=== PATIENT | male | born 1985 | race Caucasian/White ===

== ENCOUNTER 2024-12-11 10:26 | Inpatient (IN) | payer BC, SELFPAY ==
--- OUTSIDE RECORDS SUMMARY | 2017-09-28 06:06 | XMS_ITS | Continuity of Care Document ---
Author Organization [facility] Address [address] [place] [phone] Care Team Providers Care Supervisor Jewelry Department Name Role Phone Nestor Alcaraz Unavailable Unavailable Advance Directives Directive Yes / No Effective Date File Name No Information Encounters Encounter Description Practice Location Reason(s) For Visit Diagnoses Date Provider Providers Copied on Encounter [facility] , [address] [place] [address], [id number], [facility] No Information 2-201 8 Kieran Baez. . Family History Family Member Type Diagnosis Age At Onset No Information Payers Payer name Insurance type Covered alliance party ID Authoriza tion(s) No Information Social History Type Description Quantity Date Captured Comments Sex Male Smoking Status No Information Chief Complaint And Reason For Visit No Information Reason For Referral Reason For Referral No Information History Of Present Illness Encounter Date Complaint History Of Prese nt Illness No Information Functional Status Date Functional Assessmen t No Information Instructions Date Instruction Additional Infor mation No Information Assessments Type Assessment Date No Information Patient Care Teams Name Effective Dates (start - stop) Status Members No Information
--- OUTSIDE RECORDS SUMMARY | 2017-09-28 06:06 | XMS_ITS | Continuity of Care Document ---
Author Organization [facility] Address [address] [place] [address] Care Team Providers Care Cattle Killer Name Role Phone Nestor Alcaraz Unavailable Unavailable Advance Directives Directive Yes / No Effective Date File Name No Information Encounters Encounter Description Practice Location Reason(s) For Visit Diagnoses Date Provider Providers Copied on Encounter [facility] , [address] [place] [address], [id number], [facility] No Information 2-201 8 Kieran Baez. . Family History Family Member Type Diagnosis Age At Onset No Information Payers Payer name Insurance type Covered republican ID Authoriza tion(s) No Information Social History [...]
--- OUTSIDE RECORDS SUMMARY | 2024-12-10 08:15 | XMS_ITS | Encounter Summary ---
Author Organization [facility] Address [address], [place] [address] Care Team Providers Care Dna Analyst Name Role Phone Found, No Pcp MD Primary Care Provider Unavailab le Reason for Visit * Procedure/Equipment (Routine) - Incomplete Specialty Diagnoses / Procedures Referred By Maria Esther t Referred To Contact Diagnoses Flank pain Procedures XR Abd Flat/KUB 1 View Navin Atwood, CORRESPONDENCE REVIEW CLERK, OXYGEN THERAPY TEACHER [address] [place] [address] Phone: tel: fax: Referral ID Status Reason Start Date Expiration Date V isits Requested Visits Authorized [id number] Incomplete 12/10/2024 03/11/2026 1 1 Encounter Details Date Type Department Care Team (Late st Contact Info) Description 12/10/2024 8:15 AM CDT Ancillary Procedure [facility] [address] [place] [phone] Navin Atwood, CORRESPONDENCE REVIEW CLERK, OXYGEN THERAPY TEACHER [address] [place] [address] Flank pain Social History Tobacco Use Types Packs/Day Years Used Date Smoking Tobacco: Every Day Cigarettes Smokeless Tobacco: Never Sex and Gender Information Value Date Recorded Sex Assigned at Not on file Legal Sex Male 3:47 AM CDT Gender Identity Not on file Sexual Orientation Not on file documented as of this encounter Plan of Treatment Not on file documented as of this encounter Procedures Procedure Name Priority Date/Time Associated Diagnosis Comments XR ABD FLAT/KUB 1 VIEW STAT 12/10/2024 8:18 AM CDT Flank pain documented in this encounter Results * XR Abd Flat/KUB 1 View (12/10/2024 8:18 AM CDT) Anatomical Region Laterality Modality Abdomen Digital Radiogra phy Narrative 12/10/2024 8:36 AM CDT EXAM: XR ABD FLAT/KUB 1 VIEW INDICATION: ? right stone COMPARISON: None. FINDINGS: No definite dense urinary stone though overlying bowel gas and stool could obscure small stones. The bowel gas pattern is nonobstructive. Signed by: Santy Ramos 12/10/2024 8:36 AM Procedure Note Santy Ramos MD - 12/10/2024 EXAM: XR ABD FLAT/KUB 1 VIEW INDICATION: ? right stone COMPARISON: None. FINDINGS: No definite dense urinary stone though overlying bowel gas and stool couldobscure small stones. The bowel gas pattern is nonobstructive. Signed by: Santy Ramos 12/10/2024 8:36 AM Navin Atwood CORRESPONDENCE REVIEW CLERK, OXYGEN THERAPY TEACHER RAD GD Final Re sult documented in this encounter Visit Diagnoses Diagnosis Flank pain Abdominal pain, unspecified site documented in this encounter Care Teams Dna Analyst Relationship Specialty Start Date End Date Found, No Pcp, [address] [place] [address] PCP - General 10/18/21 documented as of this encounter
--- OUTSIDE RECORDS SUMMARY | 2024-12-10 08:20 | XMS_ITS | Encounter Summary ---
Author Organization [employer] Address [address], [place] [address] Care Team Providers Care Foreign Correspondent Name Role Phone Found, No Pcp MD Primary Care Provider Unavailab le Reason for Referral * Procedure/Equipment (Routine) - Incomplete Specialty Diagnoses / Procedures Referred By Maria Esther brewer Referred To Contact Diagnoses Flank pain Procedures XR Abd Flat/KUB 1 View Navin Talamantes, TENA, EARLY INTERVENTIONIST [address] [place] [address] Phone: tel: fax: Referral ID Status Reason Start Date Expiration Date V isits Requested Visits Authorized [id number] Incomplete 12/10/2024 03/11/2026 1 1 Reason for Visit * Reason Comments ABDOMINAL PAIN--RLQ--ED RLQ abdominal pa in began yesterday morning, pain can be 8/10 sharp pain, vomiting began yesterday morning Loose stools Feverish and chilled Encounter Details Date Type Department Care Team (Late st Contact Info) Description 12/10/2024 8:20 AM CDT Office Visit [id number] [address] [place] [address] Navin Talamantes, TENA, EARLY INTERVENTIONIST [address] [place] [address] Flank pain Social History Tobacco Use Types Packs/Day Years Used Date Smoking Tobacco: Every Day Cigarettes Smokeless Tobacco: Never Sex and Gender Information Value Date Recorded Sex Assigned at Not on file Legal Sex Male 3:47 AM CDT Gender Identity Not on file Sexual Orientation Not on file documented as of this encounter Last Filed Vital Signs Vital Sign Reading Time Taken Comments Blood Pressure 157/89 12/10/2024 8:02 AM CDT Pulse 109 12/10/2024 8:02 AM CDT Temperature 36.8 C (98.3 F) 12/10/2024 8:02 AM CDT Respiratory Rate 18 12/10/2024 8:02 AM CDT Oxygen Saturation 99% 12/10/2024 8:02 AM CDT Inhaled Oxygen Concentration - - Weight - - Height - - Body Mass Index - - documented in this encounter Patient Instructions * Patient Instructions* Navin Talamantes APRN, CNP - 12/10/2024 8:20 AM CDT Take ibuprofen 600 mg every 6 hours. Take Dramamine 50 mg up to 3 times a day. Use antinausea medication as needed as directed. Use pain medication as needed as directed. Strain your urine. Follow-upwith primary care/Urology if you develop increasing pain or other concerns. Return to the emergencydepartment if you develop uncontrolled pain, vomiting, fevers, or other concerns. * Attachments The following attachments cannot be sent through Care Everywhere. * Kidney Stone (Khmer) documented in this encounter Progress Notes * Navin Talamantes APRN, CNP - 12/10/2024 8:20 AM CDTAddended by: NAVIN TALAMANTES on: 12/10/2024 01:58 PM Modules accepted: Orders * Maia Durán RN - 12/10/2024 8:20 AM CDTAddended by: MAIA DURÁN on: 12/10/2024 03:55 PM Modules accepted: Orders * Navin Talamantes APRN, CNP - 12/10/2024 8:20 AM CDT Patient ID Marty Goodwin 1985 SUBJECTIVE: 39 y.o. male presents with gradually increasing right-sided flank pain since yesterday. Pain causeshim to be unable to find an uncomfortable position. Will occasionally radiate to his groin. Denies any urinary symptoms. Had some vomiting last night. No difficulty breathing or shortness of breath. No other concerns or complaints. Past medical and surgical history reviewed on EMR. Medications reviewed on EMR No Known Allergies ROS: As noted in HPI, all other systems are negative OBJECTIVE: Patient Vitals for the past 24 hrs: BP Temp Temp src Pulse Resp SpO2 12/10/24 0802 (!) 157/89 36.8 ??C (98.3 ??F) Oral (!) 109 18 99 % General: Alert, Mild discomfort, well kept Eyes: No scleral icterus or conjunctival injection ENT: Moist mucus membranes, Normal voice Resp: No cough, normal work of breathing,. Good air movement CV: Normal rate GI: Abdomen soft and non-distended. Normoactive BS. Right mild CVA tenderness that radiates towardsthe groin. No significant right lower quadrant tenderness. No rebound tenderness Skin: Warm, dry. No rashes or petechiae Musculoskeletal: Normal gross ROM Neuro: Alert and oriented to person/place/time, normal sensation Psychiatric: Normal affect, cooperative, good eye contact LABS: Results for orders placed or performed in visit on 12/10/24 UA with Microscopic: Clean Catch Specimen: Clean Catch; Urine Result Value Ref Range Color Yellow Clarity Clear Clear Specific [place] 1.010 1.005 - 1.030 pH 6.5 5.0 - 8.0 Protein Negative Neg/Trace mg/dL Glucose Negative Negative mg/dL Ketones Negative Negative mg/dL Urobilinogen 1.0 <2.0 EU/dL Bilirubin Negative Negative Blood Small (A) Neg/Trace Nitrite Negative Negative Leukocyte Esterase Trace (A) Negative Source Clean Catch Urine Microscopic Evaluation: Clean Catch Specimen: Clean Catch; Urine Result Value Ref Range Red Blood Cells 8-10 (A) 0 - 3 /HPF White Blood Cells 0-5 0 - 5 /HPF Mucus Present (A) None Seen /HPF IMAGING: XR Abd Flat/KUB 1 View Result Date: 12/10/2024 EXAM: XR ABD FLAT/KUB 1 VIEW INDICATION: ? right stone COMPARISON: None. FINDINGS: No definite dense urinary stone though overlying bowel gas and stool could obscure small stones. The bowel gas pattern is nonobstructive. Signed by: Santy Ramos 12/10/2024 8:36 AM Images ordered and were independently reviewed. No obvious stone. Agree with radiologic over-read.. Medications: Outpatient Encounter Medications as of 12/10/2024 Medication Sig Dispense Refill HYDROcodone-acetaminophen (NORCO) 5-325 MG tablet Take 1 Tablet by mouth every 6 hours as needed for Pain. 10 Tablet 0 ondansetron (ZOFRAN-ODT) 4 MG disintegrating tablet Take 1 Tablet (4 mg) by mouth every 8 hours as needed for Nausea. 8 Tablet 0 Facility-Administered Encounter Medications as of 12/10/2024 Medication Dose Route Frequency Provider Last Rate Last Admin [COMPLETED] ketorolac (TORADOL) injection 15 mg 15 mg Intramuscular Once Navin Talamantes APRN, CNP 15 mg at 12/10/24 0814 ASSESSMENT: 39 y.o. male presented with concerns as noted above. His examination was most concerning for kidneystone. We did obtain a KUB however a stone was not visualized. He does have some blood in his urinewithout signs of infection given his history and presentation this is a presumptive kidney stone. Can not fully rule out appendicitis however his exam is less consistent with that. We discussed options about further evaluation and he would like to treat it as a kidney stone at this time concerning signs and symptoms as well as reasons to present to the emergency department were discussed. At thispoint he does appear to be safe and appropriate for outpatient management follow-up and is discharged home. Diagnosis and Associated Orders ICD-10-CM 1. Flank pain R10.9 ketorolac (TORADOL) injection 15 mg XR Abd Flat/KUB 1 View UA with Microscopic: Clean Catch Urine Microscopic Evaluation: Clean Catch PLAN: Follow up with primary care physician in 3 - 5 days or sooner if symptoms worsen , may return here or go to the ER if worsening or concerns. documented in this encounter Nursing Notes * Belkys Jackson RN - 12/10/2024 8:20 AM CDT Marty Goodwin is a 39 y.o.male presents to the Urgent Care for ABDOMINAL PAIN--RLQ--ED (RLQ abdominal pain began yesterday morning, pain can be 8/10 sharp pain, vomiting began yesterday morning //Loose stools /Feverish and chilled ) Getting worse documented in this encounter Plan of Treatment Not on file documented as of this encounter Procedures Procedure Name Priority Date/Time Associated Diagnosis Comments UA WITH MICROSCOPIC STAT 12/10/2024 8 :21 AM CDT Flank pain UA MICRO STAT 12/10/2024 8:21 AM CDT Flank pain documented in this encounter Results * (ABNORMAL) Urine Microscopic Evaluation: Clean Catch (12/10/2024 8:21 AM CDT) Red Blood Cells 8-10(A) 0 - 3 /HPF 12/10/2024 9:11 AM CDT [facility] White Blood Cells 0-5 0 - 5 /HPF 12/10/2024 9:11 AM T [facility] Mucus Present(A) None Seen /HPF 12/10/2024 9:11 AM T [facility] Urine URINE SPECIMEN COLLECTION, CLEAN CATCH / Unknown Non-blood Collection / Unknown 12/10/2024 8:21 AM CDT 12/10/2024 9:00 AM CDT us Navin Talamantes GEAR REPAIRER, EARLY INTERVENTIONIST LAB_1 Final Re sult [facility] CLIA: [id number] [place] [address], [facility] * (ABNORMAL) UA with Microscopic: Clean Catch (12/10/2024 8:21 AM CDT) Color Yellow 12/10/2024 9:11 AM CDT [facility] Clarity Clear Clear 12/10/2024 9:11 AM [facility] Specific [place] 1.010 1.005 - 1.030 12/10/2024 9:11 AM [facility] pH 6.5 5.0 - 8.0 12/10/2024 9:11 AM [facility] Protein Negative Neg/Trace mg/dL 12/10/2024 9:11 AM [facility] Glucose Negative Negative mg/dL 12/10/2024 9:11 AM [facility] Ketones Negative Negative mg/dL 12/10/2024 9:11 AM [facility] Urobilinogen 1.0 <2.0 EU/dL 12/10/2024 9:11 AM [facility] Bilirubin Negative Negative 12/10/2024 9:11 AM [facility] Blood Small(A) Neg/Trace 12/10/2024 9:11 AM [facility] Nitrite Negative Negative 12/10/2024 9:11 AM [facility] Leukocyte Esterase Trace(A) Negative 12/10/2024 9:11 AM [facility] Source Clean Catch 12/10/2024 9:11 AM [facility] Urine URINE SPECIMEN COLLECTION, CLEAN CATCH / Unknown Non-blood Collection / Unknown 12/10/2024 8:21 AM CDT 12/10/2024 9:00 AM CDT us Navin Talamantes APRN, EARLY INTERVENTIONIST LAB_1 Final Re sult [facility] CLIA: [id number] [address] [place] [address], [facility] * XR Abd Flat/KUB 1 View (12/10/2024 [...] Signed by: Santy Ramos 12/10/2024 8:36 AM us Navin Talamantes GEAR REPAIRER, EARLY INTERVENTIONIST RAD GD Final Re sult documented in this encounter Visit Diagnoses Diagnosis Flank pain Abdominal pain, unspecified site Flank pain Abdominal pain, unspecified site documented in this encounter Administered Medications Inactive Administered Medications - up to 3 most recent administrations Medication Order MAR Action Action Date Dose Rate Site ketorolac (TORADOL) injection 15 mg 15 mg, Intramuscular, ONCE, On 12/10/24 at 0830, For 1 doseIndications:Flank pain Given 12/10/2024 8:14 AM CDT 15 mg Right Ventralgluteal documented in this encounter Care Teams Foreign Correspondent Relationship Specialty Start Date End Date Found, No Pcp, [address] [place] [address] PCP - General 10/18/21 documented as of this encounter
[2024-12-11] VITALS (28 sets, daily range): BP systolic 112–171; BP diastolic 58–104; PULSE 80–113; RESP 14–20; TEMP 36.1–38.3; O2SAT 92–98; BMI 26.6
--- OUTSIDE RECORDS SUMMARY | 2024-12-11 10:28 | XMS_ITS | Clinical Summary ---
Author Organization [facility] Address [address] [place] [address] Care Team Providers Care Emissions Testing And Repair Technician Name Role Phone Errol Nevarez MD Primary Care Provider [phone] Allergies No known active allergies Medications erythromycin ophthalmic ointment 0.5%Indications: Corneal abrasion, unspecified laterality, initial encounter Apply a thin ribbon to the top edge of the lower right eyelid every 4 hours while awake for 5 days 3.5 g 05/24/2023 Active gabapentin (NEURONTIN) 300 mg capsuleIndicatio ns:Corneal abrasion, unspecified laterality, initial encounter Take 1 Capsule (300 mg) by mouth three times daily. For eye nerve pain 10 Capsule 05/24/2023 Active Propylene Glycol-Glycerin (Artificial Tears,Glycerin-P EG,) 1-0.3 % ophthalmic solutionIndicati ons:Corneal abrasion, unspecified laterality, initial encounter Instill 1-2 drops every 2 hours as needed for eye dryness 15 mL 05/24/2023 Active Active Problems Problem Noted Date Diagnosed Date Chemical dependency 06/07/2016 Tobacco use disorder 09/19/2008 Recurrent acute otitis media 09/19/2008 Overview (09/19/2008): ~ 08/03/07 ~ 09/19/08 Seizure Overview (02/20/2010): 5-6 total, first seizure when 19-20 years old. followed By Dr. Mir. Started Keppra August 2009. Follow up Neurology visit Oct 2009. Immunizations Immunization Administration Dates Next Due DTaP 08/21/1988 Hepatitis B (Peds) 08/30/2002,11/24/2000 Tdap 01/31/2010 Family History Medical History Relation Name Comments Good Health Father Heart Disease Father Good Health Mother Relation Name Status Comments Father Mother Social History Tobacco Use Types Packs/Day Years Used Date Smoking Tobacco: Every Day Cigarettes 1 5 Smokeless Tobacco: Never Tobacco Cessation:Ready to Q uit: No; Counseling Given: Yes Alcohol Use Standard Drinks/Week Comments No 0 (1 standard drink = 0.6 oz pur e alcohol) Social Connections Answer Date Recorded Frequency of Communication with Friends and Fami ly Not on file 08/12/2021 Sex and Gender Information Value Date Recorded Sex Assigned at Not on file Legal Sex Male 7:28 AM FOLDER SEAMER AUTOMATIC Gender Identity Not on file Sexual Orientation Not on file Obstetrics History Last Filed Vital Signs Vital Sign [place] Time Taken Comments Blood Pressure 141/74 05/24/2023 5:14 PM FOLDER SEAMER AUTOMATIC Pulse 76 05/24/2023 5:14 PM FOLDER SEAMER AUTOMATIC Temperature 36.5 C (97.7 F) 05/24/2023 5:14 PM FOLDER SEAMER AUTOMATIC Respiratory Rate 16 05/24/2023 5:14 PM FOLDER SEAMER AUTOMATIC Oxygen Saturation 98% 05/24/2023 5:14 PM FOLDER SEAMER AUTOMATIC Inhaled Oxygen Concentration - - Weight 86.2 kg (190 lb) 05/24/2023 5:14 PM FOLDER SEAMER AUTOMATIC Height 177.8 cm (5' 10) 05/24/2023 5:14 PM FOLDER SEAMER AUTOMATIC Body Mass Index 27.26 05/24/2023 5:14 PM FOLDER SEAMER AUTOMATIC Plan of Treatment Health Maintenance Due Date Last Done Comments Depression screening for age 12+ 1999 Hepatitis B series for 19+ ( 3 of 3 - 3-dose series) 10/25/2002 08/30/2002, 11/24/2000 HIV for age 15-65 12/04/2002 Hepatitis C screening for age 18-79 12/04/2005 Pneumococcal series for age 6-49 (1 of 2 - PCV) 12/04/2006 HPV series for age 9-45 (1 - 3-dose SCDM series) 12/04/2014 Tetanus booster 02/01/2020 01/31/2010 Lipids for age 35-44 12/04/2022 06/06/2016 BMI (ht and wt on same day) for age 18+ 05/24/2024 05/24/2023, 08/02/2021, 06/06/2016 COVID-19 vaccine series ( season) 2024 02/22/2021, 01/31/2021 Influenza Vaccine (#1) 2024 RSV vaccine for adults or pr egnancy (1 - 1-dose 75+ series) 12/04/2062 Procedures Procedure Name Priority Date/Time Associated Diagnosis Comments LIPID PANEL Routine 06/06/2016 11:20 AM FOLDER SEAMER AUTOMATIC Physical exam from Last 3 Months or Most Recently Relevant to Health Maintenance Results * (ABNORMAL) LIPID PANEL (06/06/2016 11:20 AM FOLDER SEAMER AUTOMATIC) CHOLESTEROL,TOTAL 235(H) 100 - 199 mg/dL 06/06/2016 9:51 PM FOLDER SEAMER AUTOMATIC [facility] TRIGLYCERIDES 89 <150 mg/dL 06/06/2016 9:51 PM FOLDER SEAMER AUTOMATIC [facility] HDL CHOLESTEROL 49 >40 mg/dL 7 9:51 PM FOLDER SEAMER AUTOMATIC [facility] NON-HDL CHOLESTEROL 186(H) <145 mg/dl 06/06/2016 9:51 PM FOLDER SEAMER AUTOMATIC [facility] CHOL/HDL RATIO 4.80(H) <4.50 06/06/2016 9:51 PM FOLDER SEAMER AUTOMATIC [facility] LDL CHOLESTEROL 168(H) <=130 mg/dL 06/06/2016 9:51 PM FOLDER SEAMER AUTOMATIC [facility] PATIENT STATUS NOT GIVEN 06/06/2016 9:51 PM FOLDER SEAMER AUTOMATIC [facility] Blood BLOOD SPECIMEN / Unknown Venipuncture / Unknown 06/06/2016 11:20 AM FOLDER SEAMER AUTOMATIC 06/06/2016 11:20 AM FOLDER SEAMER AUTOMATIC us Mp Castillo MD CHEMISTRY Final Resu lt [facility] [address] [place] [address], [place] from Last 3 Months or Most Recently Relevant to Health Maintenance Insurance [employer] Member Subscriber Plan / Payer (Ef fective 2021-Present) Name:Marty Goodwin Relation to Subscriber:Employee Name:[address] [place] [address] Date of :1998 (Home) Address: [address] [address] Payer ID:Not on file Group ID:Not on file Type:Not on file Address: [employer] [address] [facility] [phone] [place] [phone] * Guarantor: [employer] Account Type Relation to Patient Date of Phone Billing Address [employer] [address] [place] [address] Care Teams Emissions Testing And Repair Technician Relationship Specialty Start Date End Date Errol Nevarez MD PCP - General 09/19/08
--- OUTSIDE RECORDS SUMMARY | 2024-12-11 10:28 | XMS_ITS | Clinical Summary ---
Author Organization [facility] Address [address], [place] [address] Care Team Providers Care Linux Network Engineer Name Role Phone Found, No Pcp MD Primary Care Provider Unavailab le Source Comments You are receiving this document as you are listed as the primary care provider,follow-up provider, or the patient has been referred to you for consultation.This is in compliance with the Medicare and[facility] EHR Incentive Program,which states Providers who transition their patient to another setting of careor provider of care or refers their patient to another provider of care shouldprovide summary care record for each transition of care or referral. FPSI Allergies No known active allergies Medications HYDROcodone-acetam inophen (NORCO) 5-325 MG tablet Take 1 Tablet by mouth every 6 hours as needed for Pain. 10 Tablet 12/11/19 25 Active ondansetron (ZOFRAN-ODT) 4 MG disintegrating tablet Take 1 Tablet (4 mg) by mouth every 8 hours as needed for Nausea. 8 Tablet 12/11/19 25 Active ondansetron (ZOFRAN-ODT) 4 MG disintegrating tablet Take 1 Tablet (4 mg) by mouth every 8 hours as needed for Nausea. 8 Tablet 12/11/19 25 025 Discontinued HYDROcodone-acetam inophen (NORCO) 5-325 MG tablet Take 1 Tablet by mouth every 6 hours as needed for Pain. 10 Tablet 12/11/19 25 025 Discontinued Hospital, Clinic, or Other Facility Administered Medication Ordered Dose Route Frequency Start Date End Date Status ketorolac (TORADOL) injection 15 mgIndications:Flank pain 15 mg IM ONCE 12/10/2024 12/10/2024 Ended Active Problems Problem Noted Date Diagnosed Date Seizure 12/10/2024 Overview (12/10/2024): 5-6 total, first seizure when 19-20 years old. followed By Dr. Mir. Started [facility] August 2009. Follow up Neurology visit Oct 2009. Chemical dependency 06/07/2016 Encounters Date Type Department Care Team Description 12/10/2024 8:20 AM CDT Office Visit [place] [address] [facility] [id number] [place] [phone] Navin Atwood, FLIGHT CREW TIME CLERK, LABOR COMMISSIONER Flank pain 12/10/2024 8:15 AM CDT Ancillary Procedure [facility] [id number] [place] [phone] Navin Atwood, FLIGHT CREW TIME CLERK, LABOR COMMISSIONER Flank pain 12/10/2024 Telephone [place] [address] [facility] [id number] [place] [phone] Needs Pcp, Assignment Medication Questions from Last 3 Months Immunizations Immunization Administration Dates Next Due DTP 08/21/1988 Social History Tobacco Use Types Packs/Day Years Used Date Smoking Tobacco: Every Day Cigarettes Smokeless Tobacco: Never Tobacco Cessation:Ready to Q uit: Not Asked; Counseling Given: Not Answered Sex and Gender Information Value Date Recorded Sex Assigned at Not on file Legal Sex Male 3:47 AM CDT Gender Identity Not on file Sexual Orientation Not on file Last Filed Vital Signs Vital Sign Reading Time Taken Comments Blood Pressure 157/89 12/10/2024 8:02 AM CDT Pulse 109 12/10/2024 8:02 AM CDT Temperature 36.8 C (98.3 F) 12/10/2024 8:02 AM CDT Respiratory Rate 18 12/10/2024 8:02 AM CDT Oxygen Saturation 99% 12/10/2024 8:02 AM CDT Inhaled Oxygen Concentration - - Weight - - Height - - Body Mass Index - - Plan of Treatment Health Maintenance Due Date Last Done Comments Hep C Screening (Preventive Services) 1987 HIV Screening (Preventive Services) 2003 Adult Preventive Visit 12/04/2005 HepB Vaccine (1) 12/04/2006 Pneumococcal Vaccine (1 of 2 - PCV) 12/04/2006 HPV Vaccine (1 - 3-dose SCDM series) 12/04/2014 DTaP/Tdap/Td Vaccine (3 - Tdap) 02/01/2020 01/31/2010, 08/21/1988 Cholesterol 12/04/2022 COVID-19 Vaccine (3 - 2024-2 6 season) 2024 02/22/2021, 01/31/2021 Influenza Vaccine (#1) 2024 Zoster/Shingles Vaccine (1 o f 2) 12/04/2037 HepA Vaccine Aged Out No longer eligi ble based on patient's age to complete this topic Hib Vaccine Aged Out No longer eligi ble based on patient's age to complete this topic IPV (Polio) Vaccine Aged Out No longe r eligible based on patient's age to complete this topic MCV4 Vaccine Aged Out No longer eligi ble based on patient's age to complete this topic Meningococcal B Vaccine Aged Out No l onger eligible based on patient's age to complete this topic Procedures Procedure Name Priority Date/Time Associated Diagnosis Comments UA MICRO STAT 12/10/2024 8:21 AM CDT Flank pain UA WITH MICROSCOPIC STAT 12/10/2024 8 :21 AM CDT Flank pain XR ABD FLAT/KUB 1 VIEW STAT 12/10/2024 8:18 AM CDT Flank pain from Last 3 Months Results * (ABNORMAL) UA with Microscopic: Clean Catch (12/10/2024 8:21 AM CDT) Color Yellow 12/10/2024 9:11 AM [facility] Clarity Clear Clear 12/10/2024 9:11 AM [facility] Specific [place] 1.010 1.005 - 1.030 12/10/2024 9:11 AM [facility] pH 6.5 5.0 - 8.0 12/10/2024 9:11 AM [facility] Protein Negative Neg/Trace mg/dL 12/10/2024 9:11 AM [facility] Glucose Negative Negative mg/dL 12/10/2024 9:11 AM [facility] Ketones Negative Negative mg/dL 12/10/2024 9:11 AM [facility] Urobilinogen 1.0 <2.0 EU/dL 12/10/2024 9:11 AM [facility] Bilirubin Negative Negative 12/10/2024 9:11 AM [facility] Blood Small(A) Neg/Trace 12/10/2024 9:11 AM [facility] Nitrite Negative Negative 12/10/2024 9:11 AM [facility] Leukocyte Esterase Trace(A) Negative 12/10/2024 9:11 AM [facility] Source Clean Catch 12/10/2024 9:11 AM [facility] Urine URINE SPECIMEN COLLECTION, CLEAN CATCH / Unknown Non-blood Collection / Unknown 12/10/2024 8:21 AM CDT 12/10/2024 9:00 AM CDT Navin Atwood APRN, LABOR COMMISSIONER LAB_1 Final Re sult Performing Organization Address [facility] de Phone Number [facility] CLIA: [id number] [place] [address] * (ABNORMAL) Urine Microscopic Evaluation: Clean Catch (12/10/2024 8:21 AM CDT) Red Blood Cells 8-10(A) 0 - 3 /HPF 12/10/2024 9:11 AM [facility] White Blood Cells 0-5 0 - 5 /HPF 12/10/2024 9:11 AM [facility] Mucus Present(A) None Seen /HPF 12/10/2024 9:11 AM [facility] Urine URINE SPECIMEN COLLECTION, CLEAN CATCH / Unknown Non-blood Collection / Unknown 12/10/2024 8:21 AM CDT 12/10/2024 9:00 AM CDT Navin Atwood FLIGHT CREW TIME CLERK, LABOR COMMISSIONER LAB_1 Final Re sult Performing Organization Address [facility] de Phone Number [facility] CLIA: [id number] [place] [address] * XR Abd Flat/KUB 1 View [...] Santy Ramos 12/10/2024 8:36 AM Navin Atwood FLIGHT CREW TIME CLERK, LABOR COMMISSIONER RAD GD Final Re sult from Last 3 Months Insurance [facility] [employer] [facility] [employer] [facility] [employer] Care Teams Linux Network Engineer Relationship Specialty Start Date End Date Found, No Pcp, [address] [place] [address] PCP - General 10/18/21
--- OUTSIDE RECORDS SUMMARY | 2024-12-11 10:28 | XMS_ITS | Encounter Summary ---
Author Organization [facility] Address [address], [place] [address] Care Team Providers Care Vacuum Drier Tender Name Role Phone Found, No Pcp MD Primary Care Provider Unavailab le Reason for Visit * Reason Comments Medication Questions Encounter Details Date Type Department Care Team (Late st Contact Info) Description 12/10/2024 Telephone [place] [address] [facility] [address] [place] [phone] Needs Pcp, [place], [place] [address] Medication Questions Social History Tobacco Use Types Packs/Day Years Used Date Smoking Tobacco: Every Day Cigarettes Smokeless Tobacco: Never Sex and Gender Information Value Date Recorded Sex Assigned at Not on file Legal Sex Male 3:47 AM CDT Gender Identity Not on file Sexual Orientation Not on file documented as of this encounter Nursing Notes * Nikki Durán RN - 12/10/2024 3:55 PM CDT [facility] sent to [facility]. * Rocío Cintron - 12/10/2024 3:37 PM CDT Caller states that pharmacy received only the narcotic. Has not received the anti nausea med. Please advise * Rocío Cintron - 12/10/2024 10:47 AM CDT Medication - Transfer to new pharmacy Which medication(s) would you like transferred? ondansetron (ZOFRAN-ODT) 4 MG disintegrating table,HYDROcodone-acetaminophen (NORCO) 5-325 MG tablet Which pharmacy would you like the medication(s) transferred to? [facility]- updated documented in this encounter Plan of Treatment Not on file documented as of this encounter Visit Diagnoses Not on filedocumented in this encounter Care Teams Vacuum Drier Tender Relationship Specialty Start Date End Date Found, No Pcp, [address] [place] [address] PCP - General 10/18/21 documented as of this encounter
--- OUTSIDE RECORDS SUMMARY | 2024-12-11 10:28 | XMS_ITS | Clinical Summary ---
Author Organization [facility] Address [address] [facility] [place] [address] Care Team Providers Care Supervisor Aircraft Cleaning Name Role Phone No Ref-Primary, Physician Primary Care Provider Allergies Active Allergy Reactions Criticality Noted Date Comments No Known Drug Allergy 05/24/2007 Medications NO ACTIVE MEDICATIONS . 0 0 05/24/2007 Active meclizine (ANTIVERT) 25 MG tablet Take 1 tablet (25 mg) by mouth 3 times daily as needed for dizziness. 30 tablet 02/11/2024 Active Active Problems Problem Noted Date Diagnosed Date Tobacco use disorder 06/09/2007 Resolved Problems Problem Noted Date Diagnosed Date Resolved Date Pain in joint, shoulder region 07/15/2012 08/09/2012 Family History Medical History Relation Comments Hypertension Father Neurologic Disorder Paternal Grandfather Kory on Relation Status Comments Father Alive Maternal Grandfather Alive Maternal Grandmother Alive Mother Alive Paternal Grandfather Paternal Grandmother Alive Social History Tobacco Use Types Packs/Day Years Used Date Smoking Tobacco: Every Day Cigarettes Comments:trying to quit-2 pe r day Alcohol Use Standard Drinks/Week Comments Yes 0 (1 standard drink = 0.6 oz pur e alcohol) rare Sex and Gender Information Value Date Recorded Sex Assigned at Not on file Legal Sex Male 3:16 AM LEAK GANG SUPERVISOR Gender Identity Not on file Sexual Orientation Not on file Last Filed Vital Signs Vital Sign Reading Time Taken Comments Blood Pressure 116/73 02/11/2024 12:25 PM LEAK GANG SUPERVISOR Pulse 74 02/11/2024 12:25 PM LEAK GANG SUPERVISOR Temperature 37.1 C (98.7 F) 02/11/2024 10:08 AM LEAK GANG SUPERVISOR Respiratory Rate 18 02/11/2024 10:08 AM LEAK GANG SUPERVISOR Oxygen Saturation 97% 02/11/2024 12:25 PM LEAK GANG SUPERVISOR Inhaled Oxygen Concentration - - Weight 84.2 kg (185 lb 10 oz) 02/11/2024 10:08 A M LEAK GANG SUPERVISOR Height 175.3 cm (5' 9) 02/11/2024 10:08 AM LEAK GANG SUPERVISOR Body Mass Index 27.41 02/11/2024 10:08 AM LEAK GANG SUPERVISOR Plan of Treatment Health Maintenance Due Date Last Done Comments ADVANCE CARE PLANNING 1987 ANNUAL REVIEW OF HM ORDERS 1987 YEARLY PREVENTIVE VISIT 12/04/1990 HEPATITIS B VACCINE (3 of 3 - 3-dose series) 10/25/2002 08/30/2002, 11/24/2000 HIV SCREENING 12/04/2002 HEPATITIS C SCREENING 12/04/2005 DTAP/TDAP/TD VACCINE (3 - Td or Tdap) 02/01/2020 01/31/2010, 08/21/1988 PHQ-2 (once per calendar year) 2024 COVID-19 VACCINE (3 - 2024-2 6 season) 2024 02/22/2021, 01/31/2021 INFLUENZA VACCINE (#1) 2024 DIABETES SCREENING 02/10/2027 02/11/2024 ZOSTER VACCINE (1 of 2) 12/04/2037 HPV VACCINE (No Doses Required) Completed MENINGITIS VACCINE Aged Out No longer eligible based on patient's age to complete this topic PNEUMOCOCCAL VACCINE: PEDIATRICS (0 to 5 YEARS) AND AT-RISK PATIENTS (6 to 49 YEARS) Aged Out No longer eligible b ased on patient's age to complete this topic Procedures Procedure Name Priority Date/Time Associated Diagnosis Comments BASIC METABOLIC PANEL STAT 02/11/2024 10:09 AM LEAK GANG SUPERVISOR from Last 3 Months or Most Recently Relevant to Health Maintenance Results * (ABNORMAL) Basic metabolic panel (BMP) (02/11/2024 10:09 AM LEAK GANG SUPERVISOR) Sodium 139 135 - 145 mmol/L 02/11/2024 10:51 AM LEAK GANG SUPERVISOR [facility] Potassium 4.2 3.4 - 5.3 mmol/L 02/11/2024 10:51 AM [facility] Chloride 102 98 - 107 mmol/L 02/11/2024 10:51 AM [facility] Carbon Dioxide (CO2) 27 22 - 29 mmol/L 02/11/2024 10:51 AM [facility] Anion Gap 10 7 - 15 mmol/L 02/11/2024 10:51 AM [facility] Urea Nitrogen 13.0 6.0 - 20.0 mg/dL 02/11/2024 10:51 AM [facility] Creatinine 0.94 0.67 - 1.17 mg/dL 02/11/2024 10:51 AM [facility] GFR Estimate >90 >60 mL/min/1.7 3m2 02/11/2024 10:51 AM [facility] Comment:eGFR calculated usin 2020 CKD-EPI equation. Calcium 9.3 8.8 - 10.4 mg/dL 02/11/2024 10:51 AM [facility] Comment:Reference intervals for this test were updated on 10/13/2023 to reflect our healthy population more accurately. There may be differences in the flagging of prior results with similar values performed with this method. Those prior results can be interpreted in the context of the updated reference intervals. Glucose 107(H) 70 - 99 mg/dL 02/11/2024 10:51 AM [facility] Blood BLOOD SPECIMEN / Unknown Venipuncture / Unknown 02/11/2024 10:09 AM LEAK GANG SUPERVISOR 02/11/2024 10:23 AM [facility] us Merry Hicks PA-C LAB - BLOOD ORDERABLES Final Result LABORATORY [facility] [address] Lab (1st floor, no room number) [place] [address], [facility] from Last 3 Months or Most Recently Relevant to Health Maintenance Care Teams Supervisor Aircraft Cleaning Relationship Specialty Start Date End Date No Ref-Primary, Physician PCP - General 02/11/24
[2024-12-11 11:02] LABS: Appearance Urine Clear (Clear)
--- NOTE | 2024-12-11 11:18 | CRLHL7_ITS ---
For Patients: As a result of the Century Cures Act, medical imaging exams and procedure reports are released immediately into your electronic medical record. You may view this report before your referring provider. If you have questions, please contact your health care provider. INDICATION: Right flank pain abdominal pain TECHNIQUE: CT abdomen and pelvis without contrast. COMPARISON: None. FINDINGS: Lower chest: Unremarkable. Liver: Normal in size and attenuation. No suspicious masses. Gallbladder and bile ducts: No stones or inflammation. No biliary dilatation. Pancreas: Unremarkable. No mass or inflammation. Spleen: Normal in size. No masses. Adrenal glands: Normal in size. No nodules. Kidneys: Normal in size. No suspicious masses, stones, or hydronephrosis. GI tract: The proximal and mid appendix is within normal limits. The distal appendix is obscured with a rounded inflammatory collection. There are surrounding inflammatory changes in the right lower quadrant. No free air seen. Vasculature: Abdominal aorta is normal in caliber. Lymph nodes: No lymphadenopathy. Peritoneum/Abdominal Wall: Unremarkable. No sign of mass or infiltration. No free air or significant free fluid. Pelvis: Unremarkable. No pelvic masses. Bones: Unremarkable for age. IMPRESSION: 1. Rounded inflammatory process in the right lower quadrant at the location of the distal appendix. Findings likely reflecting tip appendicitis. Ruptured appendicitis can not be completely excluded. No free air. Please note that all CT scans at this facility use dose modulation, iterative reconstruction, and/or weight-based dosing when appropriate to reduce radiation dose to as low as reasonably achievable. Dictated by Mary Boyd MD @ 12/11/2024 12:31:18 PM (Electronically Signed)
--- NOTE | 2024-12-11 11:19 | ED.GENADULT ---
HPI - General Adult General Chief complaint: Flank Pain Stated complaint: kidney stones Time Seen by Provider: 12/11/24 11:09 History of Present Illness HPI narrative: This 39-year-old male comes in because of right sided abdominal pain that began 3 days ago. He did go to urgent care and did have a plain x-ray with normal results. He did receive a prescription for Maple. He has been taking this medicine and at times has rather severe pain that involves his right abdomen and sometimes is flank and right groin. He does not have any personal history of kidney stones but thinks that his sister did have a kidney stone. He is reporting fevers but arrives here with normal vital signs. Currently his pain is dissipated and he does not appear to be in distress. Related Data Home Medications ?Medication ?Instructions ?Recorded ?Confirmed No Known Home Medications 12/11/24 12/11/24 Allergies Allergy/AdvReac Type Severity Reaction Status Date / Time No Known Drug Allergies Allergy Verified 12/11/24 10:54 Review of Systems Status of ROS: Reports: 10 or more systems reviewed and unremarkable except as noted in History and below Narrative: Constitutional: No fevers, no weight gain or loss. Eyes: No discharge. No vision changes. HENT: No congestion, no sore throat, no ear pain. Cardiovascular: No chest pain, no palpitations. Respiratory: No shortness of breath, no wheezes, no cough. Gastrointestinal: No vomiting, no diarrhea. Right-sided abdominal pain as described above. Genitourinary: No dysuria, no hematuria. He states that he has been drinking lots of water but feels that he has not urinated as much as he would expect for the amount that he has been drinking. He does not describe any dysuria symptoms. Musculoskeletal: Normal range of motion. Skin: No rashes, no pruritis. Neurological: No dizziness, weakness, sensory change, speech change. Endo/Heme/Allergies: No bruising or bleeding. No polydipsia. Pysch: no suicidality, no anxiety, no insomnia. All other systems reviewed and are negative. [facility] Surgical History History of tympanostomy tube placement ?Z96.22 - Myringotomy tube(s) status (ICD-10) Exam Narrative: Exam Narrative: Constitutional: Well-developed, well-nourished, no acute distress. HEENT: Normocephalic, atraumatic. Neck: Normal range of motion. Nontender. Supple. Heart: Regular. No murmurs. Normal rate. Intact distal pulses. Lungs: Clear to auscultation. No chest discomfort. No wheezes, rhonchi, or rales. Abdomen: Normal bowel sounds. Tenderness in the right abdomen. No rebound tenderness. Genitalia: Deferred. Back: No midline tenderness. Normal range of motion. Extremities: Normal range of motion. No injury. Skin: Intact. No rash. Warm. No erythema or pallor. Neurologic: No altered sensation. No weakness. Alert and oriented. Psychiatric: No suicidality. No anxiety or depression. No insomnia. Nursing notes and vitals signs are reviewed. Const: Vital Signs, click to edit/add: Vital Signs - 24 hr 12/11/24 10:45 Temperature 97.1 F L Pulse Rate [Pulse Oximeter] 98 Respiratory Rate 18 Blood Pressure [Ri t Upper Arm] 112/58 L Pulse Oximetry 98 Oxygen Delivery Me thod Room Air Course Vital Signs Vital signs: Initial Vital Signs Temperature 97.1 F L 12/11/24 10:45 Temperature Source Temporal Artery Scan 12/11/24 10:45 Pulse Rate 98 12/11/24 10:45 Respiratory Rate 18 12/11/24 10:45 Blood Pressure 112/58 L 12/11/24 10:45 Blood Pressure Mean 76 12/11/24 10:45 Blood Pressure Position Sitting 12/11/24 10:45 Pulse Oximetry 98 12/11/24 10:45 Oxygen Delivery Method Room Air 12/11/24 10:45 Vital Signs Temperature 97.1 F L 12/11/24 10:45 Pulse Rate 98 12/11/24 10:45 Respiratory Rate 18 12/11/24 10:45 Blood Pressure 112/58 L 12/11/24 10:45 Pulse Oximetry 98 12/11/24 10:45 Oxygen Delivery Method Room Air 12/11/24 10:45 Temperature 97.1 F L 12/11/24 10:45 Pulse Rate 98 12/11/24 10:45 Respiratory Rate 18 12/11/24 10:45 Blood Pressure 112/58 L 12/11/24 10:45 Pulse Oximetry 98 12/11/24 10:45 Oxygen Delivery Method Room Air 12/11/24 10:45 Medical Decision Making MDM Narrative Medical decision making narrative: This patient comes in with right-sided abdominal pain as described above. He did have some rebound tenderness in Rovsing sign was positive. CT scan is obtained of the abdomen and pelvis does not show any sign of kidney stone but there our suspicions of appendicitis and even possible ruptured appendicitis. The patient has an IV established and labs are acquired. He did receive IV doses of Dilaudid and Zosyn. I spoke with the surgeon on-call, Dr. Allen, who will arrange for appendectomy. Lab Data Labs: Lab Results 12/11/24 Range/Units 10:56 Urine Color Yellow (Yellow) Urine Appearance Clear (Clear) Urine pH 7.0 (5.0-8.5) Ur Specific [place] 1.010 (1.000-1.030) Urine Protein Negative (Negative) Urine Glucose (UA) Negative (Negative) Urine Ketones Negative (Negative) Urine Blood 1+ A (Negative) Urine Nitrite Negative (Negative) Urine Bilirubin Negative (Negative) Urine Urobilinogen 0.2 (0.2-1.0) Ur Leukocyte Esterase Negative (Negative) Urine RBC 0-2 (0-2) Urine WBC 0-2 (0-5) Ur Squamous Epith Cells None (None-Few) Urine Bacteria None (None) Imaging Data CT scan - abdomen: Radiologist's impression: Rounded inflammatory process in the right lower quadrant at the location of the distal appendix. Findings likely reflecting tip appendicitis. Ruptured appendicitis can not be completely excluded. No free air. Discharge Plan Discharge Clinical Impression: Acute appendicitis Patient Disposition: XFER to OR Condition: Unchanged Follow Up/Referrals: Provider,Not a Local [Primary Care Provider, Family Practice]
[2024-12-11 13:45] LABS: Hematocrit* 44.1 % (37.0-53.0); Hemoglobin* 15.0 gm/dL (13.5-17.5); Immature Granulocytes Pct Auto 0.1 %; Mean Corpuscular HGB Conc 34 gm/dL (32-36); Mean Corpuscular Hemoglobin 33 pg (26-34); Mean Corpuscular Volume 96 fL (80-100); RDW Coefficient of Variation % 13.3 % (11.5-15.5); Red Blood Count* 4.59 m/uL (4.30-5.90); White Blood Count* 11.32 K/uL (4.50-11.00)
[2024-12-11] MEDS: ONDANSETRON 2 MG/ML inj 4 MG IVP (13:50)
[2024-12-11] MEDS: PIPERACILLIN/TAZOBACTAM 3.375 GM in 0.9 % SODIUM CHLORIDE Mini-bag 100 ML IVPB ×2 (13:50→19:32)
[2024-12-11 13:52] LABS: Chloride* 99 mmol/L (96-114); Potassium* 3.7 mmol/L (3.6-5.1); Sodium* 134 mmol/L (135-149)
[2024-12-11 13:55] LABS: Anion Gap 6 mEq/L (7-15); Blood Urea Nitrogen* 12 mg/dL (5-24); Calcium* 8.8 mg/dL (8.4-10.6); Carbon Dioxide* 29 mmol/L (20-32); Creatinine* 0.9 mg/dL (0.5-1.5); Est. Creatinine Clearance* 112.38; Estimated Glomerular Filt Rate 113 ml/min; Glucose* 91 mg/dL (60-115)
[2024-12-11] MEDS: NICOTINE 21 MG PATCH 1 PATCH TRANSDERMA (13:55)
--- NOTE | 2024-12-11 14:19 | PM.GSHP ---
History of Present Illness History of Present Illness Date Seen: 12/11/24 Chief complaint: kidney stones Narrative: Marty Goodwin is a 39 year old male who presented to the emergency department with right-sided abdominal pain. He says that the pain started on night. It has always been in the right side but has slowly migrated down towards his pelvis. The pain is only gotten worse. On Thursday he had a decrease in appetite nausea and vomiting. He has never had pain like this before. Denies any diarrhea or constipation. No fevers. He was seen in urgent care. There they thought he had a kidney stone. An abdominal x-ray was obtained which was normal and he was given a prescription for Wilsey. He has never had abdominal surgery before. Patient is a pack per day smoker. He works as a [employer]. Review of Systems Status of ROS: Reports: 10 or more systems reviewed and unremarkable except as noted in History and below [facility] Surgical History History of tympanostomy tube placement ?Z96.22 - Myringotomy tube(s) status (ICD-10) Meds Home Medications and Allergies Home Medications ?Medication ?Instructions ?Recorded ?Confirmed ?Type No Known Home Medications 12/11/24 12/11/24 History Allergies Allergy/AdvReac Type Severity Reaction Status Date / Time No Known Drug Allergies Allergy Verified 12/11/24 10:54 Exam Narrative: Exam Narrative: General: Alert oriented, nontoxic Respiratory: Equal breath rise bilaterally, maintained on room air CV: Well perfused Abdomen: Soft, tender to palpation right lower quadrant with some guarding, no rebound. Extremities: No evidence of edema bilaterally. Const: Vital Signs, click to edit/add: Vital Signs - 24 hr 12/11/24 10:45 12/11/24 13:38 Temperature 97.1 F L 98.7 F Pulse Rate [Pulse Oximeter] 98 88 Respiratory Rate 18 16 Blood Pressure [Ri ght Upper Arm] 112/58 L 127/65 Pulse Oximetry 98 97 Oxygen Delivery Me thod Room Air Room Air Results Results Labs: WBC 11.32. BMP with mild hyponatremia 134. Abdomen CT scan report/results: report reviewed and image reviewed Progress Note:A&P Assessment and plan (1) Acute appendicitis: Status: Acute Assessment and Plan: The patient presented with 3 day history worsening right-sided abdominal pain. Workup was obtained which included a CT scan that is suspicious for acute appendicitis. There is an inflammatory process on the distal aspect of the appendix, that is also concerning for possible perforation. No large abscess or fluid collection to drain. I discussed the treatment options with the patient including non-surgical and surgical options. I recommended laparoscopic appendectomy. The risks of surgery were reviewed with the patient including the risks of bleeding, post-operative wound or intra-abdominal infection, injury to abdominal structures and possible conversion to an open operation. We also discussed anesthetic complications including AR, stroke, respiratory failure and blood clots. The patient voiced an understanding of our conversation, had the opportunity to ask questions, agreed to accept the risks of surgery and asked that we proceed with surgery. Patient received IV Zosyn in the emergency department. If there is evidence of perforation he will likely need to stay inpatient on IV antibiotics. Plan -OR for laparoscopic appendectomy
[2024-12-11 14:21] LABS: Immature Granulocytes Abs Auto 0.00 K/uL (0.00-0.30); Lymphocytes Absolute Auto 1.50 K/uL (0.90-2.90); Slide Review Reflex No
[2024-12-11] MEDS: LACTATED RINGERS 1000 ML 1,000 ML 100 ML IV (14:50)
--- NOTE | 2024-12-11 15:00 | SUR.OPER ---
PATIENT QUESTIONS ANSWERED SATISFACTORILY PREOPERATIVELY. PATIENT BROUGHT TO OR #4 PER CART. Patient positioned supine on OR #4 bed. The perioperative team supported arms bilaterally on arm boards for the intubation. Left arm tucked at the patient side in a neutral position using the draw sheet. Final approval of positioning by surgeon.
[2024-12-11] MEDS: BUPIVACAINE 0.25% 30 ML 20 ML INJECTION (15:03)
--- NOTE | 2024-12-11 16:20 | P.GSOP_ITS ---
Operative Note Date of procedure: 12/11/24 Pre-op diagnosis: Perforated appendicitis Post-op diagnosis: Same Type of Procedure: Laparoscopic appendectomy Indications: Patient is a 39-year-old male who presented to the emergency department with clinical workup and history consistent with appendicitis. CT scan showed an inflammatory mass of the distal aspect, concerning for perforated appendicitis. Recommendations were to proceed to the operating room. Risks and benefits of operative intervention were discussed at length with the patient. Risks included but was not limited to: Bleeding, infection, risk of damage to surrounding structures, possible need for additional procedures, possible need to convert to an open operation and postoperative complications such as pneumonia, pulmonary emboli or NH. All questions and concerns were addressed with the patient agreeing to proceed. Procedure Description: After discussing the risks and benefits of the procedure, the patient signed informed consent.? The operative site was marked and the patient was brought to the operating room and placed on the operating table in supine position.? Care was taken to pad the patient's pressure points.?? The patient was then intubated by anesthesia.?? The operative site was then prepped and draped in the usual sterile fashion.? A time-out was then performed. Entrance to the abdomen was obtained via a 5 mm optical trocar in the left upper quadrant. The abdomen was insufflated and briefly surveyed for any signs of injury. There were none. A 12 mm port was placed lateral to the umbilicus as well as a 5 mm port in the left lower quadrant under direct vision. The patient was then placed in Trendelenburg position with the right side up. The small bowel was gently moved out of the way. The terminal ileum was identified inserting into the cecum. The tinea of the cecum was followed where it splayed at the base of the appendix. The appendiceal body was then grasped and gently retracted towards the abdominal wall. The appendix extended retrocecal. The lateral pelvic attachments were dissected free with cautery. Near the tip of the appendix an abscess cavity was entered with some purulence and stool suctioned. The abscess cavity was taken down with blunt dissection and cautery. Some inflammatory attachments of the appendiceal body were broken up with cautery and dissection. A mesenteric window was then created at the base of the appendix. Using a 45 mm purple load stapler the appendix was transected at its base. The staple line was inspected and a small area of bleeding was controlled with a single 5 mm clip. Using the [place] the appendiceal artery was identified within the mesentery. Two 5 mm clips were placed at the base and cautery was used to transected the distal aspect of the artery close to the body of the appendix. A small area of bleeding was controlled with a single 5 mm clip. The remaining inflammatory attachments and mesentery was then taken down with cautery. The appendix was then removed from the abdomen using an Endo- Catch bag. The right lower quadrant was locally irrigated. Hemostasis was checked and another 5 mm clip placed on the lateral abdominal wall were a single small artery was bleeding. Hemostasis was excellent at the end of the case. The omentum was placed into the right lower quadrant, covering the operative field. The 12 mm port was removed. This was closed via a [id number]-on-nqezb stitch. There was some bleeding from the muscle at this area, which was controlled with the 0 Vicryl stitch. A 2nd look in the abdomen was obtained, where again hemostasis was assured. All other ports were removed under direct vi sualization. Additional local anesthetic was applied into each port site. The incisions were then closed with 4-0 Monocryl suture. Sterile dressings were applied. Instrument sponge and needle counts were correct at the end of the case. The patient was then woken and transported to the PACU in stable condition. Findings: Perforated appendicitis with associated abscess. Anesthesia: GETA Surgeon: Sagrario Allen MD Estimated blood loss (mL): 25 Specimen: Appendix Condition: stable Disposition: PACU
--- NOTE | 2024-12-11 16:20 | P.ANES_ITS ---
Anesthesia Charges Start Date/Time Anesthesia Start Date: 12/11/24 Anesthesia Start Time: 14:37 Stop Date/Time Anesthesia Stop Date: 12/11/24 Anesthesia Stop Time: 16:17 Summary Emergency: FIBERLINE SUPERVISOR Coding CPT Codes CPT Codes: ANESTH SURG LOWER ABDOMEN - 66651 ([id number]) P2 - PATIENT W/MILD SYST DISEASE, QZ - FIBERLINE SUPERVISOR SVC W/O EXECUTIVE MEETING MANAGER BY Additional Codes: Summary - Emergency: FIBERLINE SUPERVISOR ([id number])
--- NOTE | 2024-12-11 16:20 | W.ANESCHARGE ---
Anesthesia Charges Start Date/Time Anesthesia Start Date: 12/11/24 Anesthesia Start Time: 14:37 Stop Date/Time Anesthesia Stop Date: 12/11/24 Anesthesia Stop Time: 16:17 Summary Emergency: SUGAR LABORATORY ASSISTANT Coding CPT Codes CPT Codes: ANESTH SURG LOWER ABDOMEN - 38687 ([id number]) P2 - PATIENT W/MILD SYST DISEASE, QZ - SUGAR LABORATORY ASSISTANT SVC W/O SPIN TANK TENDER BY Additional Codes: Summary - Emergency: SUGAR LABORATORY ASSISTANT ([id number])
[2024-12-11] MEDS: HYDROCODONE-ACETAMIN 5-325 MG 1 TAB PO ×2 (17:32→21:24)
--- NOTE | 2024-12-11 22:59 | PC.NURSE ---
Patient admitted for lap appy after ruptured appendix. lap sites CDI. Patient utilizing prn medications for pain control. Patient is tolerating a regular diet, ambulating independently, and voiding clear yellow urine. Patient has received antibiotics as ordered. at bedside
[2024-12-12 02:20] VITALS: BP 134/80; PULSE 74; RESP 18; TEMP 35.8; O2SAT 96
[2024-12-12] MEDS: SODIUM CHLORIDE 0.9 % (FLUSH) 10 ML SYRINGE IVF (02:23)
[2024-12-12] MEDS: PIPERACILLIN/TAZOBACTAM 3.375 GM in 0.9 % SODIUM CHLORIDE Mini-bag 100 ML IVPB ×4 (02:23→20:00)
[2024-12-12] MEDS: HYDROCODONE-ACETAMIN 5-325 MG 1 TAB PO ×5 (02:27→20:43)
--- NOTE | 2024-12-12 04:31 | PC.NURSE ---
Shift note: Patient is alert and oriented. Tolerated regular diet well without abdominal symptoms. LAP sites clean and dry. Patient confirmed passing gas but no BM. Hypoactive bowel sounds in all 4 quadrants. Patient is independent in room. has been with patient in room. Vitally stable. Pain was rated at 8 and Medication given as prescribed.
[2024-12-12 06:49] LABS: Hematocrit* 40.6 % (37.0-53.0); Hemoglobin* 13.9 gm/dL (13.5-17.5); Immature Granulocytes Pct Auto 0.2 %; Mean Corpuscular HGB Conc 34 gm/dL (32-36); Mean Corpuscular Hemoglobin 33 pg (26-34); Mean Corpuscular Volume 96 fL (80-100); RDW Coefficient of Variation % 13.2 % (11.5-15.5); Red Blood Count* 4.21 m/uL (4.30-5.90); White Blood Count* 12.37 K/uL (4.50-11.00)
[2024-12-12 06:52] LABS: Immature Granulocytes Abs Auto 0.00 K/uL (0.00-0.30); Lymphocytes Absolute Auto 1.40 K/uL (0.90-2.90); Slide Review Reflex No
[2024-12-12 06:59] LABS: Chloride* 99 mmol/L (96-114); Potassium* 4.0 mmol/L (3.6-5.1); Sodium* 134 mmol/L (135-149)
[2024-12-12 07:00] VITALS: BP 138/101; PULSE 70; RESP 20; RESP 24; TEMP 36.5; O2SAT 99
[2024-12-12 07:02] LABS: Anion Gap 6 mEq/L (7-15); Blood Urea Nitrogen* 12 mg/dL (5-24); Calcium* 8.5 mg/dL (8.4-10.6); Carbon Dioxide* 29 mmol/L (20-32); Creatinine* 0.9 mg/dL (0.5-1.5); Est. Creatinine Clearance* 112.38; Estimated Glomerular Filt Rate 113 ml/min; Glucose* 110 mg/dL (60-115)
[2024-12-12] MEDS: PANTOPRAZOLE SODIUM 40 MG INJ IVP (09:26)
--- NOTE | 2024-12-12 09:46 | PM.GSPN ---
Subjective Subjective Date Seen: 12/12/24 Interval history: Patient with fevers overnight (101). Has been tolerating food and passing gas. Had a bowel movement this morning. Pain well controlled with medications, mostly at the middle incision. Has been ambulating around the room. Exam Narrative: Exam Narrative: Abd: soft, tender over incision sites. Non distended. Steri strips in place, some dried blood on inferior incision site. Const: Vital Signs, click to edit/add: Vital Signs - 24 hr 12/11/24 10:45 12/11/24 13:38 12/11/24 13:38 Temperature 97.1 F L 98.7 F Pulse Rate 101 H Pulse Rate [Pulse Oximeter] 98 88 Pulse Rate [Right Pulse Oximeter] Respiratory Rate 18 16 Blood Pressure 127/65 Blood Pressure [Le ft Arm] Blood Pressure [Ri ght Arm] Blood Pressure [Ri ght Upper Arm] 112/58 L 127/65 Pulse Oximetry 98 97 95 Oxygen Delivery Me thod Room Air Room Air Oxygen Flow Rate 12/11/24 13:39 12/11/24 13:45 12/11/24 14:00 Temperature Pulse Rate 91 91 88 Pulse Rate [Pulse Oximeter] Pulse Rate [Right Pulse Oximeter] Respiratory Rate Blood Pressure Blood Pressure [Le ft Arm] Blood Pressure [Ri ght Arm] Blood Pressure [Ri ght Upper Arm] Pulse Oximetry 95 96 93 Oxygen Delivery Me thod Oxygen Flow Rate 12/11/24 14:02 12/11/24 14:15 12/11/24 14:30 Temperature Pulse Rate 96 90 94 Pulse Rate [Pulse Oximeter] Pulse Rate [Right Pulse Oximeter] Respiratory Rate Blood Pressure 129/95 H Blood Pressure [Le ft Arm] Blood Pressure [Ri ght Arm] Blood Pressure [Ri ght Upper Arm] Pulse Oximetry 94 96 Oxygen Delivery Me thod Oxygen Flow Rate 12/11/24 14:32 12/11/24 14:33 12/11/24 16:12 Temperature 100.3 F H Pulse Rate 90 102 H 112 H Pulse Rate [Pulse Oximeter] Pulse Rate [Right Pulse Oximeter] Respiratory Rate 16 Blood Pressure 136/76 171/88 H Blood Pressure [Le ft Arm] Blood Pressure [Ri ght Arm] Blood Pressure [Ri ght Upper Arm] Pulse Oximetry 94 96 95 Oxygen Delivery Me thod Room Air Oxygen Flow Rate 12/11/24 16:20 12/11/24 16:25 12/11/24 16:30 Temperature 100.1 F H Pulse Rate 105 H 98 90 Pulse Rate [Pulse Oximeter] Pulse Rate [Right Pulse Oximeter] Respiratory Rate 18 18 14 Blood Pressure 156/88 H 142/80 H 140/86 H Blood Pressure [Le ft Arm] Blood Pressure [Ri ght Arm] Blood Pressure [Ri ght Upper Arm] Pulse Oximetry 97 96 95 Oxygen Delivery Me thod OxyMask OxyMask Room Air Oxygen Flow Rate 10 6 12/11/24 16:35 12/11/24 16:40 12/11/24 16:45 Temperature 100.0 F H Pulse Rate 97 101 H 93 Pulse Rate [Pulse Oximeter] Pulse Rate [Right Pulse Oximeter] Respiratory Rate 16 18 18 Blood Pressure 141/79 H 132/79 132/79 Blood Pressure [Le ft Arm] Blood Pressure [Ri ght Arm] Blood Pressure [Ri ght Upper Arm] Pulse Oximetry 94 93 Oxygen Delivery Me thod Room Air Room Air Room Air Oxygen Flow Rate 12/11/24 16:57 12/11/24 17:12 12/11/24 17:27 Temperature 97.5 F L 97.5 F L 98.1 F Pulse Rate Pulse Rate [Pulse Oximeter] Pulse Rate [Right Pulse Oximeter] 95 92 95 Respiratory Rate 18 20 18 Blood Pressure Blood Pressure [Le ft Arm] 146/86 H 157/96 H Blood Pressure [Ri ght Arm] 145/104 H Blood Pressure [Ri ght Upper Arm] Pulse Oximetry 92 92 95 Oxygen Delivery Me thod Room Air Room Air Room Air Oxygen Flow Rate 12/11/24 17:42 12/11/24 18:12 12/11/24 18:42 Temperature 98.1 F 99.1 F 101 F H Pulse Rate Pulse Rate [Pulse Oximeter] Pulse Rate [Right Pulse Oximeter] 95 113 H 100 Respiratory Rate 18 18 18 Blood Pressure Blood Pressure [Le ft Arm] 159/95 H 145/88 H Blood Pressure [Ri ght Arm] 114/87 Blood Pressure [Ri ght Upper Arm] Pulse Oximetry 96 97 98 Oxygen Delivery Me thod Room Air Room Air Room Air Oxygen Flow Rate 12/11/24 19:14 12/11/24 20:42 12/11/24 21:27 Temperature 100.1 F H 99.2 F 98.5 F Pulse Rate Pulse Rate [Pulse Oximeter] Pulse Rate [Right Pulse Oximeter] 107 H 109 H 93 Respiratory Rate 18 18 18 Blood Pressure Blood Pressure [Le ft Arm] Blood Pressure [Ri ght Arm] 152/93 H 148/88 H 141/87 H Blood Pressure [Ri ght Upper Arm] Pulse Oximetry 94 94 98 Oxygen Delivery Me thod Room Air Room Air Room Air Oxygen Flow Rate 12/11/24 22:19 12/11/24 23:00 12/11/24 23:00 Temperature 98.6 F 97 F L Pulse Rate Pulse Rate [Pulse Oximeter] Pulse Rate [Right Pulse Oximeter] 94 80 Respiratory Rate 17 18 18 Blood Pressure Blood Pressure [Le ft Arm] 139/91 H Blood Pressure [Ri ght Arm] 146/86 H Blood Pressure [Ri ght Upper Arm] Pulse Oximetry 94 94 94 Oxygen Delivery Me thod Room Air Room Air Room Air Oxygen Flow Rate 12/12/24 02:20 12/12/24 07:00 Temperature 96.4 F L 97.7 F Pulse Rate Pulse Rate [Pulse Oximeter] Pulse Rate [Right Pulse Oximeter] 74 70 Respiratory Rate 18 20 Blood Pressure Blood Pressure [Le ft Arm] 134/80 Blood Pressure [Ri ght Arm] 138/101 H Blood Pressure [Ri ght Upper Arm] Pulse Oximetry 96 99 Oxygen Delivery Me thod Room Air Room Air Oxygen Flow Rate Labs/Imaging Labs Labs: Leukocytosis (12) Progress Note:A&P Assessment and plan (1) Acute appendicitis: Status: Acute Plan Patient POD1 lap appy for perforated appendicitis. Febrile overnight, all other vitals stable. Continued leukocytosis this morning (12). Has had return of bowel function and is tolerating a regular diet. Ambulating independently. Recommend patient stay in patient for IV antibiotics. - regular diet - po and iv pain meds as needed - IV Zosyn - trend fever curve and WBC - encourage ambulation - SCDs for DVT ppx
[2024-12-12 12:21] VITALS: BP 138/86; PULSE 87; RESP 18; TEMP 36.6; O2SAT 99
[2024-12-12] MEDS: NICOTINE 21 MG PATCH 1 PATCH TRANSDERMA (14:50)
[2024-12-12 15:00] VITALS: PULSE 96; RESP 18; O2SAT 96
[2024-12-12 16:00] VITALS: BP 145/88; PULSE 96; RESP 18; TEMP 36.3; O2SAT 96
[2024-12-12 19:57] VITALS: BP 152/92; PULSE 90; RESP 16; TEMP 36.8; O2SAT 96
--- NOTE | 2024-12-12 20:12 | PC.NURSE ---
End of shift-- Pleasant and cooperative, alert and oriented pt. VSS and pt is afebrile. SPO2 maintained >90% on RA. Pt has c/o pain which he rated as high as 6 out of 10 multiple times today and was given [place], Toradol and IV dilaudid with stated partial relief. was notified. 3x lap sites along left side of abdomen are ALAN with steri strips intact. BS hyperactive x4. He denied nausea, but stated that he is passing flatus and had a BM x1 but did c/o straining. LS CTA, but pt does have a non-productive cough. IS use encouraged. Pt ambulating in hallways independently and showered this evening and tolerated it well. and daughter at bedside and appear loving and supportive. Report to KYLIE Schaffer.
[2024-12-13] VITALS: BP 137/94; PULSE 80; RESP 16; TEMP 36.6; O2SAT 96
[2024-12-13 00:19] VITALS: RESP 16; O2SAT 96
[2024-12-13] MEDS: HYDROCODONE-ACETAMIN 5-325 MG 1 TAB PO ×3 (01:37→10:19)
[2024-12-13] MEDS: PIPERACILLIN/TAZOBACTAM 3.375 GM in 0.9 % SODIUM CHLORIDE Mini-bag 100 ML IVPB ×2 (03:05→08:39)
[2024-12-13 03:08] VITALS: BP 127/78; PULSE 74; RESP 18; TEMP 36.4; O2SAT 96
[2024-12-13 06:15] VITALS: BP 134/86; PULSE 65; RESP 18; TEMP 36.3; O2SAT 97
[2024-12-13 06:20] VITALS: RESP 18; O2SAT 97
[2024-12-13 06:41] LABS: Hematocrit* 38.9 % (37.0-53.0); Hemoglobin* 13.2 gm/dL (13.5-17.5); Immature Granulocytes Abs Auto 0.01 K/uL (0.00-0.30); Immature Granulocytes Pct Auto 0.1 %; Lymphocytes Absolute Auto 2.19 K/uL (0.90-2.90); Mean Corpuscular HGB Conc 34 gm/dL (32-36); Mean Corpuscular Hemoglobin 33 pg (26-34); Mean Corpuscular Volume 97 fL (80-100); RDW Coefficient of Variation % 13.0 % (11.5-15.5); Red Blood Count* 4.03 m/uL (4.30-5.90); White Blood Count* 7.52 K/uL (4.50-11.00)
[2024-12-13 06:50] LABS: Slide Review Reflex No
[2024-12-13] MEDS: PANTOPRAZOLE SODIUM 40 MG INJ IVP (08:39)
--- NOTE | 2024-12-13 10:48 | PC.NURSE ---
Pt alert and oriented. Pt up independently, up walking hallways x2. Pt had complaints of 4-8; see EMAR for intervention. Pt able to sleep a few hours overnight. VSS; afebrile. Pt?s IV removed; catheter intact. Pt discharged home with ?
== END 2024-12-13 10:43 | disposition home or self-care (01) | DRG 225 ==
LOC: ED 14:09 → OR 14:36 → MEDSURG 12-13 07:45
PROVIDERS: Admitting Provider Surgery; Emergency Provider Emergency Medicine Emergency Medical Services; Visit Provider Surgery
PROC: 0DTJ4ZZ Resection of Appendix, Percutaneous Endoscopic Approach (ICD-10-PCS; CPT 44970; principal; 2024-12-11 15:00)
DX: K35.33 Acute appendicitis with perforation, localized peritonitis, and gangrene, with abscess (principal); F17.210 Nicotine dependence, cigarettes, uncomplicated
CPT/HCPCS: 00840; 36415; 74176; 80048; 81001; 81003; 85025; 88304; 99140; 99284; 99285; A9270; J0330; J0665; J1100; J1171; J1885; J2405; J2470; J2543; J2704; J3010; J3490; J7120; S4990

== ENCOUNTER 2024-12-31 18:49 | Emergency (ER) | payer BC, SELFPAY ==
--- OUTSIDE RECORDS SUMMARY | 2017-09-28 06:06 | XMS_ITS | Continuity of Care Document ---
Author Organization [facility] Address [address] [place] [address] Care Team Providers Care Supervisor [employer] Name Role Phone Nestor Alcaraz Unavailable Unavailable Advance Directives Directive Yes / No Effective Date File Name No Information Encounters Encounter Description Practice Location Reason(s) For Visit Diagnoses Date Provider Providers Copied on Encounter [facility] , [address] [place] [address], [id number], [facility] No Information 2-201 8 Kieran Baez. . [...]
--- OUTSIDE RECORDS SUMMARY | 2017-09-28 06:06 | XMS_ITS | Continuity of Care Document ---
Author Organization [facility] Address [address] [place] [phone] Care Team Providers Care Furniture Mechanic Name Role Phone Nestor Alcaraz Unavailable Unavailable Advance Directives Directive Yes / No Effective Date File Name No Information Encounters Encounter Description Practice Location Reason(s) For Visit Diagnoses Date Provider Providers Copied on Encounter [facility] , [address] [place] [address], [id number], [facility] No Information 2-201 8 Kieran Baez. . Family History Family Member Type Diagnosis Age At Onset No Information Payers Payer name Insurance type Covered green party ID Authoriza tion(s) No Information Social [...]
--- OUTSIDE RECORDS SUMMARY | 2024-11-24 10:15 | XMS_ITS ---
Author Organization [facility] Address [address] [place] [address] Care Team Providers Care Lineman A Class Name Role Phone No PCP, per PT Primary Care Provider UnavailCELESTINE Koch Unavailable [phone] No REF, per PT Unavailable Unavailable Allergies No Known Allergies REASON FOR VISIT Ear - Pain or Infection Medications Medication SIG (Take, Route, Fr equency, Duration) Notes Start Date End Date Status Elocon 0.1 % Cream 1 application to ear s Externally Once a day; Duration: 7 days 11/24/2024 12/22/2024 Active Tums Active Social History Tobacco Use: Social History Observation Description Date Details (start date - stop date) Current Smoker NA - NA Social History Alcohol Use: Social Info Question Answer Notes Recreational drugs Recreational Drug Use: No Drug/Alcohol: Social Info Question Answer Notes AUDIT-C (Standard) Did you have a drink containing alcohol in the past year? Yes How often did you have a drink containing alcohol in the past year? Declined to specify (0 point) How many drinks did you have on a typical day when you were drinking in the past year? 1 or 2 drinks (0 point) How often did you have six or more drinks on one occasion in the past year? Less than monthly (1 point) Points 1 Interpretation Negative Tobacco Use: Social Info Question Answer Notes Tobacco Control (Standard) Tobacco use: Current smoker How often do you smoke cigarettes? Every day How many cigarettes a day do you smoke? 11-20 How soon after you wake up do you smoke your first cigarette? 6-30 minutes Are you interested in quitting? Not ready to quit Problems Problem Type SNOMED Code ICD Code Onset Dates Problem Status W/U Status Risk Notes Problem Pruritic disorders (292861121) Ear itching (L29.9) Active confirmed Problem Abnormal auditory perception (31786068) Other abnormal auditory perceptions, 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) Active confirmed Vital Signs Height 69.5 in 11/24/2024 BMI 26.93 kg/m2 11/24/2024 Height-cm 176.53 cm 11/24/2024 Weight-kg 83.92 kg 11/24/2024 Weight 185 lbs 11/24/2024 Encounters Encounter Location Date Provider Diagnosis [facility] [address] [place] [address] [address] [place] [address] 11/24/2024 CELESTINE HINES Ear itching L29.9 an d Other abnormal auditory perceptions, bilateral H93.293 Assessments Encounter Date Diagnosis (ICD Code) Assessment Notes Treatment Notes Treatment Clinical Notes Section Notes 11/24/2024 Ear itching (ICD-10 - L29.9) He complains of chronic ear itching and so he was prescribed topical steroid medication to help with this. Recommend he avoid use of Q-tips which can also lead to itching of the ears. 11/24/2024 Other abnormal auditory perceptions, bilateral (ICD-10 - H93.293) Concerns about fullness of the ears. Otoscopy the ears look completely normal. Discussed that he might have some hearing loss as he does have noise exposure history and so we got an audiogram today which actually showed normal excellent hearing in both ears. 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 Recommend he avoid use of Q-tips which can also lead to itching of the ears. Other abnormal auditory perc eptions, bilateral Concerns about fullness of the ears. Otoscopy the ears look completely normal. Discussed that he might have some hearing loss as he does have noise exposure history and so we got an audiogram today which actually showed normal excellent hearing in both ears. Reassured of this finding and he should avoid noise in the future and use hearing protection Other Body mass index mate rial was published Next Appt Details Follow Up: prn, Reason: History and Physical Notes * HPI (History of Present Illness) Category Sub-Category Detail Notes Category Not es --Narrative-- 38-year-old kameron boateng comes in for ear fullness and itching and he is not sure if he has hearing loss. He notes this problem in both ears. He does have a lot of noise exposure history which is occupational. He does use hearing protection. Examination Category Sub-Category Detail Notes Category Not es Constitutional General Appearance: Normal, Well developed, Well nourished, No obvious distress Ability to Communicate: Normal, Communic ates appropriately Head and Face Appearance and Symmetry: Normal, Facial strength symmetric, No scalp or facial scarring or suspicious lesions Ears Clinical speech rece ption threshold: Normal, Able to hear normal speech Auricle: Normal, Auricles wit hout scars, lesions, or masses External auditory canal: External audito ry canal mild dermatitis changes Tympanic membrane: Tympanic membranes n ormal without swelling or erythema Nose Architecture: Normal, Grossly normal external nasal architecture with no masses or lesions Mucosa: Normal Mucosa, No Po lyps or masses Septum: Normal, Septum non o bstructing Turbinates: No turbinates abnorm alities Oral Cavity and Oropharynx Lips: Normal, No lip deformities Dental and gingiva: Normal, No obvious d ental or gingival disease Mucosa: Normal, Moist mucous membranes Tongue: Normal, Tongue mobil e with no mucosal abnormalities, no palpable massess or tenderness Hard and soft palate: Normal , Hard and soft palate without cleft or mucosal lesions Tonsils: Normal, Tonsils free of lesions and not enlarged Oral pharynx: Normal, Posterior ph arynx without visible/palpable masses/lesions or remarkable asymmetry Saliva: Normal, Clear saliva Floor of mouth normal, no masses Larynx and Hypopharynx, mirr or or scope Voice Quality: Normal voice quality Neck Masses/lymph nodes: Normal, No w orrisome neck masses or lymph nodes Salivary glands: Normal, Parotid and submandibular glands Trachea and larynx position Normal, Trac hea and larynx midline Thyroid: Normal, No thyroid a bnormality Tenderness: Normal, No cervical tenderness Neurological Alertness and orientation: Normal, Respon sive, oriented x 3 Cranial Nerves II-XII Normal Speech pattern: Normal, Prosaic, Dir ect with normal inflection and intonation Respiratory Symmetry and Respiratory effort: Normal, Symmetric chest movement and expansion with no increased intercostal retractions or use of accessory muscles Breath sounds: Normal Cardiovascular Peripheral vascular system: Norm al, including normal palpable exam of the head and neck, including no abnormal pulsations or thrills Pulse Normal Audiology Tympanometry is within normal limits bila terally Audiogram is consistent with n ormal hearing at 250-8000 Hz, bilaterally Word Recognition Score : symmetrical and excellent Eyes Appearance Normal extraocular movements , No nystagmus, Conjunctiva normal Progress Notes * Marty VALDEZDOB:1985 (38 yo M)Acc No.[id number]:11/24/2024 Patient: Marty Benedict Provider: Zaria HIENS MD :1985 A ge:38 Y S ex:Male Date:11/24/2024 Address:[address] [place], [place] [phone] Pcp:per PT No PCP Subjective: * Chief Complaints: * E ar - Pain or Infection * HPI: - -Narrative--: 38-year-old male comes in for ear fullness and itching and he is not sure if he has hearing loss.? He notes this problem in both ears. He does have a lot of noise exposure history which is occupational. He does use hearing protection. * Medical History: Seizure Medical History Verified * Surgical History: Denies Past Surgical History. * Hospitalization/Major Diagno stic Procedure: Denies Past Hospitalization. Hospitalization Verified. * Family History: F amily History Verified.. N on-Contributory.. * Social History: T obacco Use: T obacco Control (Standard) T obacco use: C urrent smoker H ow often do you smoke cigarettes? E very day H ow many cigarettes a day do you smoke? 1 1-20 H ow soon after you wake up do you smoke your first cigarette? 6 -30 minutes A re you interested in quitting? N ot ready to quit A lcohol Use: R ecreational drugs R ecreational Drug Use: N o D rug/Alcohol: A BONNIE-C (Standard) D id you have a drink containing alcohol in the past year? Y es H ow often did you have a drink containing alcohol in the past year? D eclined to specify (0 point) H ow many drinks did you have on a typical day when you were drinking in the past year? 1 or 2 drinks (0 point) H ow often did you have six or more drinks on one occasion in the past year? L ess than monthly (1 point) P oints 1 I nterpretation N egative S ocial History Verified. * Medications: T akingTums Medication List reviewed and reconciled with the patientTaking Tums Medication List reviewed and reconciled with the patient * Allergies: N .K.TiannaAJasbiryesAllergies Verified. Objective: * Vitals: W t-lbs: 185 lbs, Ht:69.5in, BMI:26.93Index, Ht-cm: 176.53 cm, Wt-k.92 kg. * Examination: C onstitutional: General Appearance: N ormal, Well developed, Well nourished, No obvious distress. Ability to Communicate: N ormal, Communicates appropriately. H ead and Face: Appearance and Symmetry: N ormal, Facial strength symmetric, No scalp or facial scarring or suspicious lesions. E yes: Appearance N ormal extraocular movements, No nystagmus, Conjunctiva normal. E ars: Clinical speech tools developer threshold: N ormal, Able to hear normal speech. Auricle: N ormal, Auricles without scars, lesions, or masses. External auditory canal: E xternal auditory canal mild dermatitis changes. Tympanic membrane: T ympanic membranes normal without swelling or erythema. N ose: Architecture: N ormal, Grossly normal external nasal architecture with no masses or lesions. Mucosa: N ormal Mucosa, No Polyps or masses. Septum: N ormal, Septum non obstructing. Turbinates: N o turbinates abnormalities. ? O ral Cavity and Oropharynx: Lips: N ormal, No lip deformities. Dental and gingiva: N ormal, No obvious dental or gingival disease. Mucosa: N ormal, Moist mucous membranes. Tongue: N ormal, Tongue mobile with no mucosal abnormalities, no palpable massess or tenderness. Floor of mouth n ormal, no masses. Hard and soft palate: N ormal , Hard and soft palate without cleft or mucosal lesions. Tonsils: N ormal, Tonsils free of lesions and not enlarged.? Oral pharynx: N ormal, Posterior pharynx without visible/palpable masses/lesions or remarkable asymmetry. Saliva: N ormal, Clear saliva. N alberto: Masses/lymph nodes: N ormal, No worrisome neck masses or lymph nodes. Salivary glands: N ormal, Parotid and submandibular glands.? Trachea and larynx position N ormal, Trachea and larynx midline. Thyroid: N ormal, No thyroid abnormality. Tenderness: N ormal, No cervical tenderness. ? N eurological: Alertness and orientation: N ormal, Responsive, oriented x 3. Cranial Nerves II-XII N ormal. Speech pattern: N ormal, Prosaic, Direct with normal inflection and intonation. C ardiovascular: Peripheral vascular system: N ormal, including normal palpable exam of the head and neck, including no abnormal pulsations or thrills. Pulse N ormal. R espiratory: Symmetry and Respiratory effort: N ormal, Symmetric chest movement and expansion with no increased intercostal retractions or use of accessory muscles. Breath sounds: N ormal. L arynx and Hypopharynx, mirror or scope: Voice Quality: N ormal voice quality. ? A udiology: Tympanometry i s within normal limits bilaterally . Audiogram i s consistent with normal hearing at 250-8000 Hz, bilaterally . Word Recognition Score : symmetrical and excellent . ? Assessment: * Assessment: 1. E ar itching - L29.9 (Primary) 2 . O ther abnormal auditory perceptions, bilateral - H93.293 Plan: * Treatment: 2. O ther abnormal auditory perceptions, bilateral Notes: Concerns about fullness of the ears. Otoscopy the ears look completely normal. Discussed that he might have some hearing loss as he does have noise exposure history and so we got an audiogram today which actually showed normal excellent hearing in both ears. Reassured of this finding and he should avoid noise in the future and use hearing protection 3. O thers Notes: Body mass index material was published * Follow Up: p rn * Sign off status: Completed true * Provider: Zaria HINES MD Date: 0 11/24/2024 Generated for Marquis villanueva/Irving/Nguyễn on: 1 06:52 PM CDT
--- OUTSIDE RECORDS SUMMARY | 2024-11-24 10:45 | XMS_ITS ---
Author Organization [facility] Address [address] [place] [address] Care Team Providers Care Pipe Jeeper Name Role Phone No PCP, per PT Primary Care Provider UnavailCELESTINE Koch Unavailable [phone] No REF, per PT Unavailable Unavailable Renata Estrada Unavailable [phone] REASON FOR VISIT Ear - Pain or Infection Medications Medication SIG (Take, Route, Fr equency, Duration) Notes Start Date End Date Status Elocon 0.1 % Cream 1 application to ear s Externally Once a day; Duration: 7 days 11/24/2024 12/22/2024 Active Tums Active Encounters Encounter Location Date Provider Diagnosis [facility] [address] [place] [address] 11/24/2024 Renata Estrada Ear itching L29.9 and Other abnormal auditory perceptions, bilateral H93.293 Assessments Encounter Date Diagnosis (ICD Code) Assessment Notes Treatment Notes Treatment Clinical Notes Section Notes 11/24/2024 Ear itching (ICD-10 - L29.9) 11/24/2024 Other abnormal auditory perceptions, bilateral (ICD-10 - H93.293) Plan Of Treatment Next Appt Details Follow Up: per ENT, Reason: History and Physical Notes * HPI (History of Present Illness) Category Sub-Category Detail Notes Category Not es Audiology o Patient is seen through clinic for a hearing evaluation per Dr.Brian Nguyen. See physician's HPI below --Narrative-- 38-year-old kameron le comes in for ear fullness and itching and he is not sure if he has hearing loss. He notes this problem in both ears. He does have a lot of noise exposure history which is occupational. He does use hearing protection. Examination Category Sub-Category Detail Notes Category Not es Audiology Tympanometry is within normal limits bila terally Audiogram is consistent with n ormal hearing at 250-8000 Hz, bilaterally Word Recognition Score : symmetrical and excellent Progress Notes * Marty VALDEZDOB:1985 (38 yo M)Acc No.[id number]:11/24/2024 ENT Referred Audio Patient: Marty Benedict Provider: Apollo Estrada :1985 A ge:38 Y S ex:Male Date:11/24/2024 Address:[address] [place], [place] [phone] Pcp:per PT No PCP Subjective: * Chief Complaints: * E ar - Pain or Infection * HPI: A udiology: o P atient is seen through clinic for a hearing evaluation per Dr.Brian Nguyen. See physician's HPI below. - -Narrative--: 38-year-old male comes in for ear fullness and itching and he is not sure if he has hearing loss.? He notes this problem in both ears. He does have a lot of noise exposure history which is occupational. He does use hearing protection. * Medications: T akingTums Elocon 0.1 % Cream 1 application to ears Externally Once a day , stop date 12/22/2024Taking Tums Taking Elocon 0.1 % Cream 1 application to ears Externally Once a day , stop date 12/22/2024 Objective: * Examination: A udiology: Tympanometry i s within normal limits bilaterally . Audiogram i s consistent with normal hearing at 250-8000 Hz, bilaterally . Word Recognition Score : symmetrical and excellent . ? Assessment: * Assessment: 1. E ar itching - L29.9 (Primary) 2 . O ther abnormal auditory perceptions, bilateral - H93.293 Plan: * Procedure Codes: 9 2557 Comp audio without SRT, Modifiers: 59 52486 Tympanometry chris * Follow Up: p er ENT Billing Information: * Procedure Codes: 43512 Comp audio modified. Modifiers: 59 10282 Tympanometry chris. * Sign off status: Completed true * Provider: Apollo Estrada Date: 0 11/24/2024 Generated for Marquis villanueva/Irving/Nguyễn on: 1 06:51 PM CDT
--- OUTSIDE RECORDS SUMMARY | 2024-12-10 08:15 | XMS_ITS | Encounter Summary ---
Author Organization [facility] Address [address] [address] Care Team Providers Care Sales And Marketing Representative Name Role Phone Found, No Pcp MD Primary Care Provider Unavailab le Reason for Visit * Procedure/Equipment (Routine) - Incomplete Specialty Diagnoses / Procedures Referred By Maria Esther t Referred To Contact Diagnoses Flank pain Procedures XR Abd Flat/KUB 1 View Navin Atwood, PATTERN CARRIER, FLOOR POLISHER [address] [place] [address] Phone: tel: fax: Referral ID Status Reason Start Date Expiration Date V isits Requested Visits Authorized [id number] Incomplete 12/10/2024 03/11/2026 1 1 Encounter Details Date Type Department Care Team (Late st Contact Info) Description 12/10/2024 8:15 AM CDT Ancillary Procedure [facility] [address] [place] [phone] Navin Atwood, PATTERN CARRIER, FLOOR POLISHER [address] [place] [address] Flank pain Social History Tobacco [...] Santy Ramos 12/10/2024 8:36 AM Navin Atwood PATTERN CARRIER, FLOOR POLISHER RAD GD Final Re sult documented in this encounter Visit Diagnoses Diagnosis Flank pain Abdominal pain, unspecified site documented in this encounter Care Teams Sales And Marketing Representative Relationship Specialty Start Date End Date Found, No Pcp, [address] [place] [address] PCP - General 10/18/21 documented as of this encounter
--- OUTSIDE RECORDS SUMMARY | 2024-12-10 08:20 | XMS_ITS | Encounter Summary ---
Author Organization [employer] Address [address] [address] Care Team Providers Care Primer Inserting Machine Operator Name Role Phone Found, No Pcp MD Primary Care Provider Unavailab le Reason for Referral * Procedure/Equipment (Routine) - Incomplete Specialty Diagnoses / Procedures Referred By Maria Esther brewer Referred To Contact Diagnoses Flank pain Procedures XR Abd Flat/KUB 1 View Navin Talamantes, TENA, ENERGY EFFICIENCY SPECIALIST [address] [place] [address] Phone: tel: fax: Referral ID Status Reason Start Date Expiration Date V isits Requested Visits Authorized [id number] Incomplete 12/10/2024 03/11/2026 1 1 Reason for Visit * Reason Comments ABDOMINAL PAIN--RLQ--ED RLQ abdominal pa in began yesterday morning, pain can be 8/10 sharp pain, vomiting began yesterday morning Loose stools Feverish and chilled Encounter Details Date Type Department Care Team (Late st Contact Info) Description 12/10/2024 8:20 AM CDT Office Visit [facility] [address] [facility] [address] [place] [address] Navin Talamantes, TENA, ENERGY EFFICIENCY SPECIALIST [address] [place] [address] Flank pain Social History Tobacco [...] sent through Care Everywhere. * Kidney Stone (Danish) documented in this encounter Progress Notes * [...] Range Color Yellow Clarity Clear Clear Specific [place] 1.010 1.005 - 1.030 pH 6.5 5.0 [...] - 3 /HPF 12/10/2024 9:11 AM CDT [facility] White Blood Cells 0-5 0 - 5 /HPF 12/10/2024 9:11 AM T [facility] Mucus Present(A) None Seen /HPF 12/10/2024 9:11 AM T [facility] Urine URINE SPECIMEN COLLECTION, CLEAN CATCH / Unknown Non-blood Collection / Unknown 12/10/2024 8:21 AM CDT 12/10/2024 9:00 AM CDT us Navin Talamantes BUILDING COORDINATOR, ENERGY EFFICIENCY SPECIALIST LAB_1 Final Re sult [facility] CLIA: [id number] [place] [address], [facility] * (ABNORMAL) UA with Microscopic: Clean Catch (12/10/2024 8:21 AM CDT) Color Yellow 12/10/2024 9:11 AM CDT [facility] Clarity Clear Clear 12/10/2024 9:11 AM [facility] Specific [place] 1.010 1.005 - 1.030 12/10/2024 9:11 AM [facility] pH 6.5 5.0 - 8.0 12/10/2024 9:11 AM [facility] Protein Negative Neg/Trace mg/dL 12/10/2024 9:11 AM [facility] Glucose Negative Negative mg/dL 12/10/2024 9:11 AM [facility] Ketones Negative Negative mg/dL 12/10/2024 9:11 AM [facility] Urobilinogen 1.0 <2.0 EU/dL 12/10/2024 9:11 AM [facility] Bilirubin Negative Negative 12/10/2024 9:11 AM [facility] Blood Small(A) Neg/Trace 12/10/2024 9:11 AM [facility] Nitrite Negative Negative 12/10/2024 9:11 AM [facility] Leukocyte Esterase Trace(A) Negative 12/10/2024 9:11 AM [facility] Source Clean Catch 12/10/2024 9:11 AM [facility] Urine URINE SPECIMEN COLLECTION, CLEAN CATCH / Unknown Non-blood Collection / Unknown 12/10/2024 8:21 AM CDT 12/10/2024 9:00 AM CDT us Navin Talamantes APRN, ENERGY EFFICIENCY SPECIALIST LAB_1 Final Re sult [facility] CLIA: [id number] [place] [address], [facility] * XR Abd Flat/KUB 1 View (12/10/2024 [...] Ramos 12/10/2024 8:36 AM us Navin Talamantes BUILDING COORDINATOR, ENERGY EFFICIENCY SPECIALIST RAD GD Final Re sult documented in [...] Ventralgluteal documented in this encounter Care Teams Primer Inserting Machine Operator Relationship Specialty Start Date End Date Found, No Pcp, [address] [place] [address] PCP - General 10/18/21 documented as of this encounter
[2024-12-31] VITALS (13 sets, daily range): BP systolic 130–156; BP diastolic 76–83; PULSE 76–101; RESP 18; TEMP 37.7; O2SAT 94–98; BMI 27.3
--- OUTSIDE RECORDS SUMMARY | 2024-12-31 18:52 | XMS_ITS | Encounter Summary ---
Author Organization [facility] Address [address] [address] Care Team Providers Care Electro Tech Name Role Phone Found, No Pcp MD Primary Care Provider Unavailab le Reason for Visit * Reason Comments Medication Questions Encounter Details Date Type Department Care Team (Late st Contact Info) Description 12/10/2024 Telephone [place] [address] Family Medicine [address] [place] [address] Needs Pcp, [place], [place] [address] Medication Questions Social History Tobacco Use Types [...] 12/10/2024 3:55 PM CDT Anderson sent to [facility]. * Rocío Cintron - 12/10/2024 3:37 PM [...] on filedocumented in this encounter Care Teams Electro Tech Relationship Specialty Start Date End Date Found, No Pcp, [address] [place] [address] PCP - General 10/18/21 documented as of this encounter
--- OUTSIDE RECORDS SUMMARY | 2024-12-31 18:52 | XMS_ITS | Patient Health Record ---
Author Organization [facility] Address [address] [place] [address] Care Team Providers Care Nut Threader Name Role Phone No PCP, per PT Primary Care Provider UnavailCELESTINE Koch Unavailable [phone] No REF, per PT Unavailable Unavailable Renata Estrada Unavailable [phone] Allergies No Known Allergies Reason For Referral No Information Medications Medication SIG (Take, Route, Frequency, Duration) Notes Start Date End Date Status Tums Active Social History Tobacco Use: Social [...] W/U Status Risk Notes Problem Pruritic disorders (288296703) Ear itching (L29.9) Active confirmed Problem Abnormal auditory perception (96488496) Other abnormal auditory perceptions, 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) Active confirmed Vital Signs Height-cm 176.53 cm 11/24/2024 Weight-kg 83.92 kg 11/24/2024 Height 69.5 in 11/24/2024 Weight 185 lbs 11/24/2024 BMI 26.93 kg/m2 11/24/2024 Encounters Encounter Location Date Provider Diagnosis [facility] [place] [address] [place] [address] 11/24/2024 CELESTINE HINES Ear itching L29.9 and Other abnormal auditory perceptions, bilateral H93.293 [facility] [place] [address] [place] [address] 11/24/2024 Renata Estrada Ear itching L29.9 and Other abnormal auditory perceptions, bilateral H93.293 Assessments Encounter Date Diagnosis (ICD Code) Assessment Notes Treatment Notes Treatment Clinical Notes Section Notes 11/24/2024 Ear itching (ICD-10 - L29.9) 11/24/2024 Ear itching (ICD-10 - L29.9) He [...] future and use hearing protection 11/24/2024 Other abnormal auditory perceptions, bilateral (ICD-10 - H93.293) 11/24/2024 Other Body mass index material was published Plan Of Treatment No Information Insurance Providers Payer Name Payer Address Payer Phone Subscriber Number Group Number Insured Name Patient Relationship to Insured Coverage Start Date Coverage End Date [facility] [address] [address] [place] [address] [id number] Marty Goodwin Self - patient is the insured Medical (General) History Medical History History ICD Code seizure
--- OUTSIDE RECORDS SUMMARY | 2024-12-31 18:52 | XMS_ITS | Clinical Summary ---
Author Organization [facility] Address [address] [address] Care Team Providers Care Grocery Store Courtesy Clerk Name Role Phone Found, No Pcp MD Primary Care Provider Unavailab le Source Comments You are receiving this document as you are listed as the primary care provider,follow-up provider, or the patient has been referred to you for consultation.This is in compliance with the Medicare and[facility] EHR Incentive Program,which states Providers who transition their patient to another setting of careor provider of care or refers their patient to another provider of care shouldprovide summary care record for each transition of care or referral. [employer] Allergies No known active allergies Medications HYDROcodone-acetam [...] years old. followed By Dr. Mir. Started [facility] August 2009. Follow up Neurology visit Oct 2009. Chemical dependency 06/07/2016 Encounters Date Type Department Care Team Description 12/10/2024 8:20 AM CDT Office Visit [place] [address] [facility] [id number] [place] [phone] Navin Atwood, GROCERY STOCKER, ELECTRICAL TIMING DEVICE CALIBRATOR Flank pain 12/10/2024 8:15 AM CDT Ancillary Procedure [facility] [id number] [place] [phone] Navin Atwood, GROCERY STOCKER, ELECTRICAL TIMING DEVICE CALIBRATOR Flank pain 12/10/2024 Telephone [place] [address] [facility] [id number] [place] [phone] Needs Pcp, Assignment Medication Questions from Last [...] CDT) Color Yellow 12/10/2024 9:11 AM [facility] Clarity Clear Clear 12/10/2024 9:11 AM [facility] Specific [place] 1.010 1.005 - 1.030 12/10/2024 9:11 AM [facility] pH 6.5 5.0 - 8.0 12/10/2024 9:11 AM [facility] Protein Negative Neg/Trace mg/dL 12/10/2024 9:11 AM [facility] Glucose Negative Negative mg/dL 12/10/2024 9:11 AM [facility] Ketones Negative Negative mg/dL 12/10/2024 9:11 AM [facility] Urobilinogen 1.0 <2.0 EU/dL 12/10/2024 9:11 AM [facility] Bilirubin Negative Negative 12/10/2024 9:11 AM [facility] Blood Small(A) Neg/Trace 12/10/2024 9:11 AM [facility] Nitrite Negative Negative 12/10/2024 9:11 AM [facility] Leukocyte Esterase Trace(A) Negative 12/10/2024 9:11 AM [facility] Source Clean Catch 12/10/2024 9:11 AM [facility] Urine URINE SPECIMEN COLLECTION, CLEAN CATCH / Unknown Non-blood Collection / Unknown 12/10/2024 8:21 AM CDT 12/10/2024 9:00 AM CDT Navin Atwood APRN, ELECTRICAL TIMING DEVICE CALIBRATOR LAB_1 Final Re sult Performing Organization Address [facility] de Phone Number [facility] CLIA: [id number] [address] [place] [address] * (ABNORMAL) Urine Microscopic Evaluation: Clean Catch (12/10/2024 8:21 AM CDT) Red Blood Cells 8-10(A) 0 - 3 /HPF 12/10/2024 9:11 AM [facility] White Blood Cells 0-5 0 - 5 /HPF 12/10/2024 9:11 AM [facility] Mucus Present(A) None Seen /HPF 12/10/2024 9:11 AM [facility] Urine URINE SPECIMEN COLLECTION, CLEAN CATCH / Unknown Non-blood Collection / Unknown 12/10/2024 8:21 AM CDT 12/10/2024 9:00 AM CDT Navin Atwood GROCERY STOCKER, ELECTRICAL TIMING DEVICE CALIBRATOR LAB_1 Final Re sult Performing Organization Address [facility] de Phone Number [facility] CLIA: [id number] [address] [place] [address] * XR Abd Flat/KUB 1 [...] Santy Ramos 12/10/2024 8:36 AM Navin Atwood GROCERY STOCKER, ELECTRICAL TIMING DEVICE CALIBRATOR RAD GD Final Re sult from Last 3 Months Insurance [facility] [employer] [facility] [employer] [facility] BLUE LINK Care Teams Grocery Store Courtesy Clerk Relationship Specialty Start Date End Date Found, No Pcp, [address] [place] [address] PCP - General 10/18/21
--- OUTSIDE RECORDS SUMMARY | 2024-12-31 18:52 | XMS_ITS | Clinical Summary ---
Author Organization [place] Address [address] [facility] [place] [address] Care Team Providers Care Press Hand Name Role Phone No Ref-Primary, Physician Primary [...] on file Legal Sex Male 3:16 AM CATALYST OPERATOR Gender Identity Not on file Sexual Orientation Not on file Last Filed Vital Signs Vital Sign Reading Time Taken Comments Blood Pressure 116/73 02/11/2024 12:25 PM CATALYST OPERATOR Pulse 74 02/11/2024 12:25 PM CATALYST OPERATOR Temperature 37.1 C (98.7 F) 02/11/2024 10:08 AM CATALYST OPERATOR Respiratory Rate 18 02/11/2024 10:08 AM CATALYST OPERATOR Oxygen Saturation 97% 02/11/2024 12:25 PM CATALYST OPERATOR Inhaled Oxygen Concentration - - Weight 84.2 kg (185 lb 10 oz) 02/11/2024 10:08 A M CATALYST OPERATOR Height 175.3 cm (5' 9) 02/11/2024 10:08 AM CATALYST OPERATOR Body Mass Index 27.41 02/11/2024 10:08 AM CATALYST OPERATOR Plan of Treatment Health Maintenance Due Date [...] BASIC METABOLIC PANEL STAT 02/11/2024 10:09 AM CATALYST OPERATOR from Last 3 Months or Most Recently Relevant to Health Maintenance Results * (ABNORMAL) Basic metabolic panel (BMP) (02/11/2024 10:09 AM CATALYST OPERATOR) Sodium 139 135 - 145 mmol/L 02/11/2024 10:51 AM CATALYST OPERATOR [facility] Potassium 4.2 3.4 - 5.3 mmol/L 02/11/2024 10:51 AM CATALYST OPERATOR LAB[facility]AT[facility] Chloride 102 98 - 107 mmol/L 02/11/2024 10:51 AM [facility] Carbon Dioxide (CO2) 27 22 - 29 mmol/L 02/11/2024 10:51 AM [facility] Anion Gap 10 7 - 15 mmol/L 02/11/2024 10:51 AM [facility] Urea Nitrogen 13.0 6.0 - 20.0 mg/dL 02/11/2024 10:51 AM [facility] Creatinine 0.94 0.67 - 1.17 mg/dL 02/11/2024 10:51 AM [facility] GFR Estimate >90 >60 mL/min/1.7 3m2 02/11/2024 10:51 AM [facility] Comment:eGFR calculated usin 2020 CKD-EPI equation. Calcium 9.3 8.8 - 10.4 mg/dL 02/11/2024 10:51 AM [facility] Comment:Reference intervals for this test were updated on 10/13/2023 to reflect our healthy population more accurately. There may be differences in the flagging of prior results with similar values performed with this method. Those prior results can be interpreted in the context of the updated reference intervals. Glucose 107(H) 70 - 99 mg/dL 02/11/2024 10:51 AM [facility] Blood BLOOD SPECIMEN / Unknown Venipuncture / Unknown 02/11/2024 10:09 AM CATALYST OPERATOR 02/11/2024 10:23 AM [facility] us Merry Hicks PA-C LAB - BLOOD ORDERABLES Final Result LABORATORY [facility] [address] Lab (1st floor, no room number) [place] [address], [facility] from Last 3 Months or Most Recently Relevant to Health Maintenance Care Teams Press Hand Relationship Specialty Start Date End Date No Ref-Primary, Physician PCP - General 02/11/24
--- OUTSIDE RECORDS SUMMARY | 2024-12-31 18:52 | XMS_ITS | Clinical Summary ---
Author Organization [facility] Address [address] [place] [id number] Care Team Providers Care Alliances Consultant Name Role Phone Errol Nevarez MD Primary Care Provider [phone] Allergies No known active allergies Medications erythromycin [...] 2009. Follow up Neurology visit Oct 2009. Encounters Date Type Department Care Team Description 12/12/2024 Lab Requisition [facility] [phone] Sagrario Allen MD from Last 3 Months Immunizations Immunization Administration Dates Next Due DTaP [...] on file Legal Sex Male 7:28 AM FUR DRUMMER Gender Identity Not on file Sexual Orientation Not on file Obstetrics History Last Filed Vital Signs Vital Sign Reading Time Taken Comments Blood Pressure 141/74 05/24/2023 5:14 PM FUR DRUMMER Pulse 76 05/24/2023 5:14 PM FUR DRUMMER Temperature 36.5 C (97.7 F) 05/24/2023 5:14 PM FUR DRUMMER Respiratory Rate 16 05/24/2023 5:14 PM FUR DRUMMER Oxygen Saturation 98% 05/24/2023 5:14 PM FUR DRUMMER Inhaled Oxygen Concentration - - Weight 86.2 kg (190 lb) 05/24/2023 5:14 PM FUR DRUMMER Height 177.8 cm (5' 10) 05/24/2023 5:14 PM FUR DRUMMER Body Mass Index 27.26 05/24/2023 5:14 PM FUR DRUMMER Plan of Treatment Health Maintenance Due Date [...] Procedure Name Priority Date/Time Associated Diagnosis Comments LAB TRACKING EVENT Routine 12/12/2024 12 :00 PM CDT PATH TISSUE EXAM Routine 12/11/2024 3:50 PM CDT LIPID PANEL Routine 06/06/2016 11:20 AM FUR DRUMMER Physical exam from Last 3 Months or Most Recently Relevant to Health Maintenance Results * LAB TRACKING EVENT (12/12/2024 12:00 PM CDT) Other (Other) Client Collect / Unknown 12/12/2024 12:00 PM CDT 12/12/2024 2:08 PM CDT us Sagrario Allen MD LAB BILL ONLY [facility] [address] [place] [address], * PATH TISSUE EXAM (12/11/2024 3:50 PM CDT) Case Report Pathology Report Case: [id number] Authorizing Provider: Sagrario Allen MD Collected: 12/11/2024 1550 Ordering Location: [facility] Received: 12/12/2024 1453 Pathologist: Jordy Chen MD Specimen: Appendix 12/14/2024 3:[address] [facility] Final Diagnosis A) APPENDIX, APPENDECTOMY: 1. Acute appendicitis with perforation and periappendicitis 2. Negative for neoplasm 12/14/2024 3:03 PM CDT [facility] [employer] LABORATORY-C ENTRAL LABORATORY at 1503 CDT Clinical Information Perforated appendicitis 12/14/2024 3:03 PM CDT [facility] ENTR[facility] LAB[facility] Gross Description A) Received in formalin, labeled with the patient's name and appendix, is a 9 cm long, 0.8 cm diameter hemorrhagic appendix with dense serosal adhesions throughout. On cut section, the partially dilated lumen lined with hemorrhagic mucosa is identified with no masses or perforations. Hammerer Helper sections including blue inked margin en face are submitted in 1 cassette. TRB 12/13/2024 12/14/2024 3:03 PM CDT [facility] Microscopic Description The final diagnosis is based on microscopic examination of appropriate sections of all specimens. 12/14/2024 3:03 PM CDT [facility] Additional Information Interpreted at [facility] - [address] [place] [address] 12/14/2024 3:03 PM CDT [facility] Other APPENDIX SPECIMEN / Unknown 12/11/2024 3:50 PM CDT 12/12/2024 2:53 PM CDT us Sagrario Allen MD PATHOLOGY/CYTOLOGY Final Result [facility] [address] [place] [address], * (ABNORMAL) LIPID PANEL (06/06/2016 11:20 AM FUR DRUMMER) CHOLESTEROL,TOTAL 235(H) 100 - 199 mg/dL 06/06/2016 9:51 PM FUR DRUMMER [facility] TR[facility] TRIGLYCERIDES 89 <150 mg/dL 06/06/2016 9:51 PM FUR DRUMMER [facility] HDL CHOLESTEROL 49 >40 mg/dL 7 9:51 PM FUR DRUMMER [facility] NON-HDL CHOLESTEROL 186(H) <145 mg/dl 06/06/2016 9:51 PM FUR DRUMMER [facility] CHOL/HDL RATIO 4.80(H) <4.50 06/06/2016 9:51 PM FUR DRUMMER [facility] LDL CHOLESTEROL 168(H) <=130 mg/dL 06/06/2016 9:51 PM FUR DRUMMER [facility] PATIENT STATUS NOT GIVEN 06/06/2016 9:51 PM FUR DRUMMER [facility] Blood BLOOD SPECIMEN / Unknown Venipuncture / Unknown 06/06/2016 11:20 AM FUR DRUMMER 06/06/2016 11:20 AM FUR DRUMMER us Mp Castillo MD CHEMISTRY Final Resu lt [facility] [address] [place] [address], from Last 3 Months or Most Recently Relevant to Health Maintenance Insurance [employer] [facility] BILL PROCESSING * Guarantor: [employer] Account Type Relation to Patient Date of Phone Billing Address [facility] [employer] [address] [place] [address] Care Teams Alliances Consultant Relationship Specialty Start Date End Date Errol Nevarez MD PCP - General 09/19/08
--- NOTE | 2024-12-31 19:44 | CRLHL7_ITS ---
For Patients: As a result of the Century Cures Act, medical imaging exams and procedure reports are released immediately into your electronic medical record. You may view this report before your referring provider. If you have questions, please contact your health care provider. INDICATION: Right lower quadrant abdominal pain. Post appendectomy. TECHNIQUE: CT abdomen and pelvis acquired with 93 cc of Isovue 370 intravenous contrast. Coronal and sagittal reformats were obtained. COMPARISON: CT abdomen/pelvis from 12/11/2024. FINDINGS: Lower chest: Within normal limits. Liver: Within normal limits. Spleen: Within normal limits. Pancreas: Within normal limits. Gallbladder and bile ducts: Within normal limits. Kidneys: Within normal limits. Adrenal glands: Within normal limits. Bowel: Within normal limits. Vascular: Within normal limits. Lymph nodes: Within normal limits. Peritoneum: Postsurgical changes of right-sided appendectomy. Small peripherally enhancing collection within the right lower quadrant at the surgical site which measures 2.4 x 2.6 centimeters in axial plane and 3.5 centimeters in craniocaudal plane. Mild surrounding inflammatory changes. No collections elsewhere within the abdomen. Pelvis: Within normal limits. Bones: Within normal limits. IMPRESSION: 1. Interval postop changes of right-sided appendectomy. Small collection at the appendectomy site which measures up to 3.5 centimeters. This is nonspecific in appearance and could reflect a seroma or abscess depending on the patient`s symptoms. 2. No acute intra-abdominal pathology elsewhere. Please note that all CT scans at this facility use dose modulation, iterative reconstruction, and/or weight-based dosing when appropriate to reduce radiation dose to as low as reasonably achievable. Dictated by Samm Perea MD @ 12/31/2024 8:14:53 PM (Electronically Signed)
[2024-12-31 19:53] LABS: Appearance Urine Clear (Clear)
[2024-12-31 19:57] LABS: Lactate Sepsis w/Reflex* 0.7 mmol/L (0.5-1.9)
[2024-12-31 19:58] LABS: Hematocrit* 40.4 % (37.0-53.0); Hemoglobin* 13.6 gm/dL (13.5-17.5); Immature Granulocytes Pct Auto 0.2 %; Mean Corpuscular HGB Conc 34 gm/dL (32-36); Mean Corpuscular Hemoglobin 32 pg (26-34); Mean Corpuscular Volume 96 fL (80-100); RDW Coefficient of Variation % 13.0 % (11.5-15.5); Red Blood Count* 4.21 m/uL (4.30-5.90); White Blood Count* 12.36 K/uL (4.50-11.00)
[2024-12-31 20:02] LABS: Immature Granulocytes Abs Auto 0.00 K/uL (0.00-0.30); Lymphocytes Absolute Auto 3.00 K/uL (0.90-2.90); Slide Review Reflex No
--- NOTE | 2024-12-31 20:38 | ED_ITS ---
HPI - General Adult General Chief complaint: Abdominal Pain Stated complaint: Post Surgery complications Time Seen by Provider: 12/31/24 19:37 Source: patient Mode of arrival: ambulatory Limitations: no limitations History of Present Illness HPI narrative: 39-year-old male with notable history of an appendectomy 3 weeks ago for perforated appendicitis. After discharge, his white count was starting to go down. He did have a little bit of a postop fever and was placed on antibiotics postoperatively and symptoms did improve. Had been feeling well for the last couple of weeks. Starting 2 days ago he began to feel mildly generally ill, started to have a fever up to 101 at home and for the last 2 days has had increasing pain in the right lower quadrant, his urged him to come in. Normal bowel movements. No vomiting. Has taken ibuprofen with some temporary improvement in symptoms. No urinary changes. No bloody stools. He is not immunocompromised, he is not anticoagulated. He does not have any l bruce-term medications. Denies other prior abdominal surgeries besides the appendectomy. No known drug allergies. ROS is notable for the generalized and abdominal symptoms above only, otherwise denies times 12 systems. ED and surgical notes reviewed from 3 weeks ago. Related Data Home Medications ?Medication ?Instructions ?Recorded ?Confirmed No Known Home Medications 12/31/2407/22 Allergies Allergy/AdvReac Type Severity Reaction Status Date / Time No Known Drug Allergies Allergy Verified 12/31/24 20:02 [facility] Surgical History History of tympanostomy tube placement ?Z96.22 - Myringotomy tube(s) status (ICD-10) Social History Smoking Status: Never smoker Second hand tobacco smoke exposure: No How often do you have a drink containing alcohol: never AUDIT-C Alcohol total score: 0 Non-prescribed substance use: denies use Exam Const: Vital Signs, click to edit/add: Vital Signs - 24 hr 12/31/24 18:52 12/31/24 20:47 12/31/24 20:50 Temperature 99.9 F H 99.9 F H Pulse Rate Pulse Rate [Right Pulse Oximeter] 101 H Respiratory Rate 18 Blood Pressure Blood Pressure [Ri ght Upper Arm] 156/82 H Pulse Oximetry 98 98 Oxygen Delivery Me thod Room Air 12/31/24 20:53 12/31/24 20:54 12/31/24 21:00 Temperature Pulse Rate 79 82 81 Pulse Rate [Right Pulse Oximeter] Respiratory Rate Blood Pressure 140/79 H Blood Pressure [Ri ght Upper Arm] Pulse Oximetry 96 96 94 Oxygen Delivery Me thod 12/31/24 21:02 12/31/24 21:02 12/31/24 21:15 Temperature Pulse Rate 79 79 77 Pulse Rate [Right Pulse Oximeter] Respiratory Rate Blood Pressure 130/76 130/76 Blood Pressure [Ri ght Upper Arm] Pulse Oximetry 95 95 96 Oxygen Delivery Me thod 12/31/24 21:30 12/31/24 21:45 12/31/24 21:51 Temperature 99.9 F H Pulse Rate 87 81 Pulse Rate [Right Pulse Oximeter] Respiratory Rate Blood Pressure Blood Pressure [Ri ght Upper Arm] Pulse Oximetry 98 94 Oxygen Delivery Me thod 12/31/24 22:00 12/31/24 22:02 Temperature Pulse Rate 81 76 Pulse Rate [Right Pulse Oximeter] Respiratory Rate Blood Pressure 132/83 Blood Pressure [Ri ght Upper Arm] Pulse Oximetry 97 95 Oxygen Delivery Me thod Documenting provider has reviewed patient's vital signs: yes Common normals: no apparent distress and alert General appearance: cooperative and well kempt HENMT: Common normals: normocephalic and moist oral mucous membranes Head and scalp: normocephalic Face and sinus: normal facial exam Mouth: oral and palatal mucosa normal Throat: posterior oropharynx normal Eye: Common normals: conjunctivae normal General eye: normal appearance of both eyes Conjunctiva: conjunctiva(e) normal Neck & C-Spine: Common normals: full ROM and no lymphadenopathy General: normal visual inspection Resp: Common normals: normal respiratory effort and clear to auscultation bilaterally Effort & inspection: able to speak in complete sentences Auscultation: clear to auscultation bilaterally Cardio: Common normals: regular rate, regular rhythm, S1 normal heart sound, S2 normal heart sound and no murmurs Rate: regular rate Rhythm: regular rhythm Heart sounds: S1 normal and S2 normal GI: Common normals: Normal to inspection, nondistended, normoactive bowel sounds present, no hepatosplenomegaly and no masses Palpation: no hepatosplenomegaly Other: Tender to palpation of right lower quadrant, mild guarding. Entire abdomen is warm to the touch. The surgical incisions are healing beautifully. No signs of surrounding redness or drainage. : Common normals: no CVA tenderness Bladder/kidney exam: no CVA tenderness Back & Pelvis: Common normals: no CVA tenderness Extremity: Common normals: normal to inspection and no pedal edema Neuro: Common normals: moves all extremities Sensorium/orientation: alert Speech: speech normal Motor exam: strength 5/5 throughout Psych: Common normals: thought process normal Appearance: well kempt Attitude: engaged Thought process: normal thought process Insight: insight good Judgement: judgment good Skin: Common normals: no rashes or lesions noted General skin exam: no rashes or lesions noted Course Course ED Course: 39-year-old male with history of perforated appendicitis, unfortunately now with fever and return of pain suspicious for surgical complication, possible abscess. Will obtain CT of the abdomen and pelvis, place peripheral IV, typical intra- abdominal blood work. Will give hydrocodone for pain. Await findings. Reevaluation(s) Reevaluation #1: Update: CT is suspicious for abscess. I spoke with Dr. Allen. She recommends consulting Interventional Radiology for drainage. Will give Zosyn 3.375 mg IV x1. Waiting for call back from Radiology, CT images sent to [facility]. Reevaluation #2: Update: Patient was accepted by hospitalist and General surgery team. Will plan to consult Interventional Radiology in the a.m.. Will transfer to [facility]. We had planned for ambulance transfer because of the patient receiving narcotics. His is able to transport him. Since he has not needed a continuous IV drip or oxygen monitoring, this is certainly reasonable and I will accept their wishes. Vital Signs Vital signs: Initial Vital Signs Temperature 99.9 F H 12/31/24 18:52 Temperature Source Temporal Artery Scan 12/31/24 18:52 Pulse Rate 101 H 12/31/24 18:52 Pulse Rhythm Regular 12/31/24 18:52 Pulse Strength 3+ Normal 12/31/24 18:52 Respiratory Rate 18 12/31/24 18:52 Blood Pressure 156/82 H 12/31/24 18:52 Blood Pressure Mean 106 H 12/31/24 18:52 Blood Pressure Position Sitting 12/31/24 18:52 Pulse Oximetry 98 12/31/24 18:52 Oxygen Delivery Method Room Air 12/31/24 18:52 Vital Signs Temperature 99.9 F H 12/31/24 18:52 Pulse Rate 101 H 12/31/24 18:52 Respiratory Rate 18 12/31/24 18:52 Blood Pressure 156/82 H 12/31/24 18:52 Pulse Oximetry 98 12/31/24 18:52 Oxygen Delivery Method Room Air 12/31/24 18:52 Temperature 99.9 F H 12/31/24 21:51 Pulse Rate 76 12/31/24 22:02 Respiratory Rate 18 12/31/24 18:52 Blood Pressure 132/83 12/31/24 22:02 Pulse Oximetry 95 12/31/24 22:02 Oxygen Delivery Method Room Air 12/31/24 18:52 Medications Administered Medications: Discontinued Medications Generic Name Dose Route Start Last Admin Trade Name Freq PRN Reason Stop Dose Admin Hydrocodone Bitart/Acetaminophen 2 tab 12/31/24 20:45 12/31/24 20:50 Hydrocodone-Acetamin 5-325 Mg 1 Tab PO 12/31/24 20:46 2 tab ONCE ONE Administration Piperacillin Sod/Tazobactam 100 mls @ 200 mls/hr 12/31/24 20:40 12/31/24 21:20 Sod 3.375 gm/ Sodium Chloride IVPB 12/31/24 20:41 Infused ONCE ONE Infusion Medical Decision Making Lab Data Lab results reviewed: Yes I reviewed the patient's lab results Lab results narrative: Some mild leukocytosis and mild elevation of absolute neutrophil count but overall, not that impressive. Normal hemoglobin, electrolytes look good. Liver enzymes look good. CRP quite elevated. Normal lipase, urinalysis unremarkable. Labs: Lab Results 12/31/24 12/31/24 Range/Units 19:49 19:50 WBC 12.36 H (4.50-11.00) K/uL RBC 4.21 L (4.30-5.90) m/uL Hgb 13.6 (13.5-17.5) gm/dL Hct 40.4 (37.0-53.0) % MCV 96 (80-100) fL MCH 32 (26-34) pg MCHC 34 (32-36) gm/dL RDW Coeff of Puneet 13.0 (11.5-15.5) % Plt Count 339 (140-440) K/uL Neut % (Auto) 66.4 (42.0-72.0) % Lymph % (Auto) 23.9 (20-44) % [place] % (Auto) 7.8 (0.0-11.0) % Eos % (Auto) 0.9 (0.0-7.0) % Baso % (Auto) 0.8 (0.0-3.0) % Neut # (Auto) 8.20 H (1.7-7.0) K/uL Lymph # (Auto) 3.00 H (0.90-2.90) K/uL Mchenry # (Auto) 1.00 H (0.00-0.90) K/UL Eos # (Auto) 0.10 (0.00-0.50) K/uL Baso # (Auto) 0.10 (0.00-0.30) K/uL Abs Immat Gran (auto) 0.00 (0.00-0.30) K/uL Imm/Tot Granulo (auto) 0.2 % Sodium 133 L (135-149) mmol/L Potassium 4.1 (3.6-5.1) mmol/L Chloride 99 (96-114) mmol/L Carbon Dioxide 30 (20-32) mmol/L Anion Gap 4 L (7-15) mEq/L BUN 22 (5-24) mg/dL Creatinine 0.9 (0.5-1.5) mg/dL Estimated Creat Clear 116.03 Estimated GFR 113 ml/min Glucose 105 (60-115) mg/dL Lactate 0.7 (0.5-1.9) mmol/L Calcium 8.9 (8.4-10.6) mg/dL Total Bilirubin 0.5 (0.1-1.5) mg/dL AST 27 (12-35) U/L ALT 18 (4-50) U/L Alkaline Phosphatase 104 (40-150) U/L C-Reactive Protein 12.1 H (0.5-1.0) mg/dL Total Protein 6.8 (6.0-8.3) g/dL Albumin 3.8 (3.3-5.0) g/dL Lipase 165 (23-300) U/L Urine Color Yellow (Yellow) Urine Appearance Clear (Clear) Urine pH 6.5 (5.0-8.5) Ur Specific [place] 1.025 (1.000-1.030) Urine Protein Negative (Negative) Urine Glucose (UA) Negative (Negative) Urine Ketones Negative (Negative) Urine Blood 1+ A (Negative) Urine Nitrite Negative (Negative) Urine Bilirubin Negative (Negative) Urine Urobilinogen 0.2 (0.2-1.0) Ur Leukocyte Esterase Negative (Negative) Urine RBC 0-2 (0-2) Urine WBC 0-2 (0-5) Ur Squamous Epith Cells None (None-Few) Urine Bacteria Few A (None) Imaging Data CT scan - abdomen: Attestation: I have reviewed the pertinent imaging results. My impression: Ring enhancing lesion near the previous area of the appendix, suspicious for abscess. No other abnormalities identified. Radiologist's impression: Peritoneum: Postsurgical changes of right-sided appendectomy. Small peripherally enhancing collection within the right lower quadrant at the surgical site which measures 2.4 x 2.6 centimeters in axial plane and 3.5 centimeters in craniocaudal plane. Mild surrounding inflammatory changes. No collections elsewhere within the abdomen. Pelvis: Within normal limits. Bones: Within normal limits. IMPRESSION: 1. Interval postop changes of right-sided appendectomy. Small collection at the appendectomy site which measures up to 3.5 centimeters. This is nonspecific in appearance and could reflect a seroma or abscess depending on the patient`s symptoms. 2. No acute intra-abdominal pathology elsewhere. Discharge Plan Discharge Clinical Impression: Abdominal visceral abscess Patient Disposition: Rupesh Ferguson Condition: Stable Prescriptions: No Action No Known Home Medications Stand Alone Forms: [email or web address] Info Instructions
[2024-12-31 20:43] LABS: Albumin* 3.8 g/dL (3.3-5.0); Chloride* 99 mmol/L (96-114); Potassium* 4.1 mmol/L (3.6-5.1); Sodium* 133 mmol/L (135-149)
[2024-12-31 20:46] LABS: Alanine Aminotransferase* 18 U/L (4-50); Alkaline Phosphatase* 104 U/L (40-150); Anion Gap 4 mEq/L (7-15); Aspartate Amino Transferase* 27 U/L (12-35); Bilirubin Total* 0.5 mg/dL (0.1-1.5); Blood Urea Nitrogen* 22 mg/dL (5-24); Calcium* 8.9 mg/dL (8.4-10.6); Carbon Dioxide* 30 mmol/L (20-32); Creatinine* 0.9 mg/dL (0.5-1.5); Est. Creatinine Clearance* 116.03; Estimated Glomerular Filt Rate 113 ml/min; Glucose* 105 mg/dL (60-115); Total Protein* 6.8 g/dL (6.0-8.3)
[2024-12-31] MEDS: PIPERACILLIN/TAZOBACTAM 3.375 GM in 0.9 % SODIUM CHLORIDE Mini-bag 100 ML IVPB (20:46)
[2024-12-31] MEDS: HYDROCODONE-ACETAMIN 5-325 MG 1 TAB 2 TAB PO (20:50)
[2025-01-01 00:05] VITALS: BP 132/74; PULSE 89; RESP 18; TEMP 37.2; O2SAT 95
[2025-01-01 00:13] VITALS: BP 132/74; PULSE 89; RESP 18; TEMP 37.2
== END 2025-01-01 00:13 | disposition short-term general hospital (02) ==
PROVIDERS: Emergency Provider Family Medicine
DX: K65.1 Peritoneal abscess (principal); T81.9XXA Unspecified complication of procedure, initial encounter
CPT/HCPCS: 36415; 74177; 80053; 81001; 81003; 83605; 83690; 85025; 86140; 87086; 94761; 96365; 99284; 99285; A9270; J2543; Q9967